=== PATIENT | female | born 1955 | race Caucasian/White ===

== ENCOUNTER 2018-04-16 13:21 | Outpatient (CLI) | payer MEDICARE, MEDICAID | END 2018-04-16 13:22 | disposition home or self-care (01) | LOC: BICMAMMO 13:21 | PROVIDERS: ATTEND Family Medicine | DX: Z12.31 Encounter for screening mammogram for malignant neoplasm of breast (principal) | CPT/HCPCS: 77066; G0279 ==

== ENCOUNTER 2018-10-28 00:15 | Outpatient (CLI) | payer MEDICARE, MEDICAID ==
[2018-10-28 13:50] LABS: Anion Gap 12 mmol/L (10-20); BUN (Urea Nitrogen) 11 mg/dL (9.8-20.1); Calc. Creatinine Clearance 0 mL/min (70-130); Calcium 9.4 mg/dL (7.8-10.44); Carbon Dioxide 27 mmol/L (23-31); Chloride 106 mmol/L (98-107); Estimated GFR-MDRD 75; Glucose 136 mg/dL (80-115); Potassium 4.2 mmol/L (3.5-5.1); Sodium 141 mmol/L (136-145)
--- NOTE | 2018-10-30 16:36 | EKG ---
Test Reason : Blood Pressure : / mmHG Vent. Rate : 099 BPM Atrial Rate : 099 BPM P-R Int : 150 ms QRS Dur : 066 ms QT Int : 354 ms P-R-T Axes : 078 064 062 degrees QTc Int : 454 ms Normal sinus rhythm Normal ECG When compared with ECG of 04-JAN-2010 11:24, T wave amplitude has decreased in Anterior leads Confirmed by DR. Pauline PENNINGTON ([id number]) on 10/30/2018 4:36:22 PM Referred By: ANGELES Confirmed By:DR. Pauline PENNINGTON
== END 2018-10-28 00:16 | disposition home or self-care (01) ==
LOC: LABBT 00:15
PROVIDERS: ATTEND Orthopaedic Surgery Hand Surgery
DX: Z01.818 Encounter for other preprocedural examination (principal); M67.432 Ganglion, left wrist
CPT/HCPCS: 80048; 93005; 93010

== ENCOUNTER 2018-11-06 07:29 | Day surgery (SDC) | payer MEDICARE, MEDICAID ==
[2018-10-28 12:37] VITALS: BMI 28.1
[2018-11-06] MEDS ORDERED: Clindamycin/D5W 600 mg/50 ml Premix Bag ONE (10:25)
[2018-11-06] MEDS ORDERED: Lidocaine 1% PF 5 ML VIAL ONE (10:30)
[2018-11-06] MEDS ORDERED: PROPOFOL 200 MG/20 ML VIAL ONE (10:30)
[2018-11-06] MEDS ORDERED: Dexamethasone 20 MG/5 ML VIAL ONE (10:30)
[2018-11-06] MEDS ORDERED: Ondansetron PF 4 MG/2 ML Vial ONE (10:30)
[2018-11-06] MEDS ORDERED: Lidocaine 2% Jelly 5 ML TUBE ONE (11:33)
[2018-11-06] MEDS ORDERED: Fentanyl 100 MCG/2 ML VIAL ONE (11:34)
[2018-11-06] MEDS ORDERED: Bacitracin Zinc Ointment 30 gm TUBE ONE (11:41)
[2018-11-06] MEDS ORDERED: Bupivacaine PF 0.5% 30 ML VIAL ONE (11:41)
[2018-11-06] MEDS ORDERED: Betamet Acet/Betamet Na Ph 30 MG/5 ML VIAL ONE (11:41)
[2018-11-06] MEDS ORDERED: Ketorolac Tromethamine 30 MG/ML VIAL ONE (13:05)
[2018-11-06] MEDS ORDERED: Morphine 4 MG/ML VIAL ONE (13:29)
--- NOTE | 2018-11-07 13:01 | OP ---
DATE OF PROCEDURE: 11/06/2018 PREOPERATIVE DIAGNOSES: 1. Ganglion, 2.5 cm left ulnar wrist. 2. Synovitis. POSTOPERATIVE DIAGNOSES: 1. Ganglion, 2.5 cm left ulnar wrist. 2. Synovitis. FINDINGS: Moderate synovitis in the scaphoradial joint and ganglion was 2.5 cm with 5 cm stalk emanating from this joint. PROCEDURES PERFORMED: 1. Arthrotomy with synovectomy wrist, left. 2. Volar wrist ganglion cyst excision. TOURNIQUET TIME: 17 minutes. ESTIMATED BLOOD LOSS: 10 mL. INDICATIONS FOR PROCEDURE: The patient had failed conservative treatment and had a swelling on the wrist with MRI showed it to be a ganglion, did not recall previous incision here despite the fact that we saw incision during surgery. DESCRIPTION OF PROCEDURE: After successful general endotracheal anesthesia, limb was prepped and draped. We outlined a 2.5 cm incision over appeared to be about 2 cm mass, which was ulnar to the flexor carpi radialis tendon over the shaft of the median nerve. We then quickly exsanguinated the limb, carried incision through skin, subcutaneous tissue, identified the radial nerve and the mass was slightly radial to median nerve at this time without translocating them. Then, we noticed that the patient had a large stalk and began dissection by first protecting the median nerve and its most radial palmar cutaneous branch. We then used forward retraction to assistance to achieve for visualization of the mass at 90 degrees and saw that although we went under the FCR, did not involve the radial artery sidewall, so we dissected it freely. The mass was then lifted out leaving approximately 5 mm long by 0.5 mm hole in the scaphoradial joint and I inspected joint. There was synovium that was very thick and also intra-articular ganglion with stalk still and we removed this as well. We deflated tourniquet to obtain hemostasis. We closed the incision after placing 3 mL Celestone in the joint with excellent hemostasis using the running 4-0 Monocryl epidermal and epidermal 4-0 nylon interrupted mattress pattern. Bulky dressing applied along with a short-arm splint and the patient left the operating room without evidence of anesthetic or operative complication. Job ID: [id number]
== END 2018-11-06 14:52 | disposition home or self-care (01) ==
LOC: SDC 07:29
PROVIDERS: ATTEND Orthopaedic Surgery Hand Surgery
PROC: 0LB60ZZ Excision of Left Lower Arm and Wrist Tendon, Open Approach (ICD-10-PCS; principal; 2018-11-06)
DX: M67.432 Ganglion, left wrist (principal); M65.88 Other synovitis and tenosynovitis, other site; Z79.1 Long term (current) use of non-steroidal anti-inflammatories (NSAID); Z79.82 Long term (current) use of aspirin; Z79.899 Other long term (current) drug therapy; Z88.0 Allergy status to penicillin
CPT/HCPCS: 88304; J0702; J1885; J2270; J3010; J3490; S0020

== ENCOUNTER 2019-02-05 07:26 | Day surgery (SDC) | payer MEDICARE, MEDICAID ==
[2019-02-04 10:53] VITALS: BMI 26.9
--- NOTE | 2019-02-05 10:38 | OP ---
DATE OF PROCEDURE: 02/05/2019 PROCEDURE PERFORMED: Screening colonoscopy. PREOPERATIVE DIAGNOSIS: Colon cancer screening. DESCRIPTION OF PROCEDURE: Informed consent was obtained from the patient. She was sedated with total intravenous anesthesia. The rectal exam was performed and revealed external hemorrhoids/skin tags. These were left alone. The colonoscope was advanced easily to the cecum, where the ileocecal valve and appendiceal orifice were clearly identified. The preparation quality was excellent. There was moderate diverticulosis in the sigmoid and descending colon. Retroflex views in the rectum revealed moderate internal hemorrhoids. The colonic mucosa was otherwise normal. IMPRESSION: 1. Moderate diverticulosis to the left colon. 2. Moderate internal and external hemorrhoids. 3. Otherwise normal screening colonoscopy. RECOMMENDATIONS: Repeat colonoscopy in 10 years for screening. Job ID: [id number]
== END 2019-02-05 10:23 | disposition home or self-care (01) ==
LOC: SDC 07:26
PROVIDERS: ATTEND Internal Medicine Gastroenterology
PROC: 0DJD8ZZ Inspection of Lower Intestinal Tract, Via Natural or Artificial Opening Endoscopic (ICD-10-PCS; principal; 2019-02-05)
DX: Z12.11 Encounter for screening for malignant neoplasm of colon (principal); K57.30 Diverticulosis of large intestine without perforation or abscess without bleeding; K64.4 Residual hemorrhoidal skin tags; K64.8 Other hemorrhoids; I10 Essential (primary) hypertension; E78.00 Pure hypercholesterolemia, unspecified; F17.200 Nicotine dependence, unspecified, uncomplicated; J44.9 Chronic obstructive pulmonary disease, unspecified; M19.90 Unspecified osteoarthritis, unspecified site; Z79.51 Long term (current) use of inhaled steroids; Z79.82 Long term (current) use of aspirin; Z79.899 Other long term (current) drug therapy; Z88.0 Allergy status to penicillin

== ENCOUNTER 2019-02-09 11:26 | Outpatient (CLI) | payer MEDICARE, MEDICAID ==
--- NOTE | 2019-02-09 11:39 | RAD ---
RADIOGRAPH CHEST 2 VIEWS: DATE: 02/09/2019 HISTORY: Dyspnea FINDINGS: There is no airspace density, pulmonary edema, pleural effusion, pneumothorax, or cardiomegaly. IMPRESSION: No acute cardiopulmonary findings.
== END 2019-02-09 11:27 | disposition home or self-care (01) ==
LOC: RAD 11:26
PROVIDERS: ATTEND Internal Medicine Pulmonary Disease
DX: R06.00 Dyspnea, unspecified (principal)
CPT/HCPCS: 71046

== ENCOUNTER 2019-08-17 11:03 | Outpatient (CLI) | payer MEDICARE ==
--- NOTE | 2019-08-17 11:13 | RAD ---
EXAM: Two views chest PROVIDED CLINICAL HISTORY: Dyspnea COMPARISON: 02/24/2019 FINDINGS: Cardiac and mediastinal silhouette appears within normal limits. Lungs appear free of significant opa city. No pleural fluid or pneumothorax apparent. IMPRESSION: No evidence for an acute cardiopulmonary process.
== END 2019-08-17 11:04 | disposition home or self-care (01) ==
LOC: RAD 11:03
PROVIDERS: ATTEND Internal Medicine Pulmonary Disease
DX: R06.00 Dyspnea, unspecified (principal)
CPT/HCPCS: 71046

== ENCOUNTER 2019-12-01 11:06 | Observation (INO) | payer MEDICARE ==
[~2019-12-01 11:06] MED LIST: Dexamethasone 20 MG/5 ML VIAL ONE; Ketorolac Tromethamine 30 MG/ML VIAL ONE; Lidocaine 1% PF 5 ML VIAL ONE; Ondansetron PF 4 MG/2 ML Vial ONE; PROPOFOL 200 MG/20 ML VIAL ONE; Succinylcholine Chloride 20 MG/ML 10 ml SYRINGE FS ONE
[2019-12-01] MEDS ORDERED: Clindamycin/D5W 900 mg/50 ml Premix Bag ONE (11:51)
[2019-12-01] MEDS ORDERED: Levofloxacin 500 mg/D5W 100 ml Premix Bag ONE (11:51)
[2019-12-01] MEDS ORDERED: Morphine 2 MG/ML SYRINGE ONE (12:25)
[2019-12-01] MEDS ORDERED: Midazolam HCl 2 mg/2 ml Vial ONE (13:08)
[2019-12-01] MEDS ORDERED: traMADol HCl 50 MG TAB PO PRN (13:18)
[2019-12-01] MEDS ORDERED: Ondansetron PF 4 MG/2 ML Vial IV PRN (13:18)
[2019-12-01] MEDS ORDERED: Fentanyl 100 MCG/2 ML VIAL SLOW IVP PRN (13:18)
[2019-12-01] MEDS ORDERED: Acetaminophen 325 MG TAB PO PRN (13:18)
[2019-12-01] MEDS ORDERED: Fentanyl 100 MCG/2 ML VIAL ONE ×2 (13:21→14:02)
[2019-12-01] MEDS ORDERED: Communication Order-Pharmacy FS SCH (13:30)
[2019-12-01] MEDS ORDERED: Ergocalciferol 1.25 MG(50,000 UNITS) CAP PO SCH (13:30)
[2019-12-01] MEDS ORDERED: predniSONE 20 MG TAB PO SCH (13:45)
[2019-12-01] MEDS ORDERED: HYDROmorphone 2 MG/ML VIAL SLOW IVP PRN (14:41)
[2019-12-01] MEDS ORDERED: Ondansetron HCl/PF 4 MG/2 ML Vial IVP PRN (14:41)
[2019-12-01] MEDS ORDERED: Promethazine HCl 25 MG/ML VIAL IM PRN (14:41)
[2019-12-01] MEDS ORDERED: Morphine Sulfate 2 MG/ML SYRINGE SLOW IVP PRN (14:41)
[2019-12-01] MEDS ORDERED: Promethazine HCl 25 MG/ML VIAL SLOW IVP PRN (14:41)
[2019-12-01] MEDS ORDERED: PACU-Morphine 4MG/ML VIAL SLOW IVP PRN (14:41)
--- NOTE | 2019-12-01 15:21 | OP ---
DATE OF PROCEDURE: 12/01/2019 OPERATION: Open reduction and internal fixation of right bimalleolar ankle fracture. PREOPERATIVE DIAGNOSIS: Displaced right fibular fracture and posterior malleolus fracture. POSTOPERATIVE DIAGNOSIS: Displaced right fibular fracture and posterior malleolus fracture. COMPLICATIONS: None. ESTIMATED BLOOD LOSS: Minimal. YEAST PUSHER: Jase Kitchen PA-C. IMPLANTS: Synthes posterior malleolar plate and one-third tubular plate with multiple screws. COMPLICATIONS: None. INDICATIONS: Ms. Lewis is a 64-year-old female, who has fallen and fractured her right ankle. She has an unstable right ankle fracture as well as an ankle sprain on the left. She has been indicated for open reduction and internal fixation of the right ankle with posterior malleolus plating and lateral malleolus plating. Risks have been reviewed, which do include infection, pain, wound complication, nerve or vascular injury, malunion, nonunion, DVT, PE, and others. DESCRIPTION OF PROCEDURE: Ms. Lewis was identified in the preoperative holding area. Her correct extremity was marked. She was carried to the operating room. She was positioned supine. General anesthesia was induced. A multidisciplinary time-out was performed. The right lower extremity was prepped and draped in sterile fashion. We began the procedure with posterolateral incision over the distal fibula. We dissected down through the subcutaneous tissues to the fascia, which was opened. We then worked deeply down to the lateral malleolus. We brought our dissection down to the bony level. We extended this somewhat proximally as well. We exposed the underlying fibular fracture from the posterior aspect. At this point, we reduced the fibular fracture with a reduction clamp. We then applied a 7-hole one-third tubular plate along the posterior cortex of the fibula. Multiple screws were placed affixing the plate to the bone. Next, at this point, we worked more deeply down the posterior ankle. We worked our way over to the posterior malleolus. This fracture was identified. We pulled traction on the foot and reduced the posterior malleolus fracture with an elevator. This was held with a K-wire. Next, we applied a Synthes posterior malleolar plate. A screw was placed proximally, reducing the plate to the bone, buttressing the fracture. We then placed two screws distally and two more screws proximally. At this point, we took final x-ray images confirming hardware placement, there was no complication. We thoroughly irrigated with copious lavage. We then closed in layers. A sterile dressing and a splint were placed. The patient was taken to the recovery room in good condition at this point. Job ID: [id number]
[2019-12-01] MEDS ORDERED: Ventolin HFA Inhaler 60 PUFF INHALER INH PRN (17:00)
[2019-12-01] MEDS: Clindamycin/D5W 900 MG in Premix Bag 1 BAG IVPB SCH ×2 (17:04→20:45)
--- NOTE | 2019-12-01 17:09 | RAD ---
THREE VIEWS OF THE RIGHT ANKLE: 12/01/19 COMPARISON: 11/30/19 HISTORY: ORIF right ankle. FINDINGS/IMPRESSION: Multiple limited intraoperative fluoroscopic views of the right ankle were submitted for interpretat ion. Patient is status post plate and screw fixation of the distal tibia and fibula. Moderate lateral soft tissue swelling is seen. There is normal alignment of the ankle mortise. POS: EAA
[2019-12-01 17:32] VITALS: BMI 26.3
[2019-12-01] MEDS: predniSONE 20 MG TAB PO SCH (17:37)
[2019-12-01] MEDS: Mometasone 200 MCG/Formoterol 5 MCG 120 PUFF INHALER INH SCH (18:17)
[2019-12-01] MEDS: HYDROcodone/Acetaminophen 5/325 mg Tablet PO PRN (20:15)
[2019-12-01] MEDS: Varenicline Tartrate 0.5 MG TAB PO SCH (20:19)
[2019-12-01] MEDS ORDERED: Aspirin 81 mg Enteric Coated Tablet PO SCH (21:00)
[2019-12-01] MEDS ORDERED: Atorvastatin Calcium 40 MG TAB PO SCH (21:00)
[2019-12-01] MEDS ORDERED: Amitriptyline HCl 25 MG TAB PO SCH (21:00)
[2019-12-01] MEDS ORDERED: Fat Emulsion 250 ML, Multivitamins, Adult 10 ML, TRACE ELEMENT CONCENTRATE 1 ML in D15W... IV SCH (22:00)
[2019-12-02] MEDS: HYDROcodone/Acetaminophen 5/325 mg Tablet PO PRN ×2 (05:30→10:30)
--- NOTE | 2019-12-02 06:58 | EKG ---
Test Reason : PREOP Blood Pressure : / mmHG Vent. Rate : 097 BPM Atrial Rate : 097 BPM P-R Int : 152 ms QRS Dur : 072 ms QT Int : 350 ms P-R-T Axes : 077 051 078 degrees QTc Int : 444 ms Normal sinus rhythm Normal ECG When compared with ECG of 28-OCT-2018 13:14, Nonspecific T wave abnormality now evident in Lateral leads Confirmed by DR. Maye VILLALTA ([id number]) on 12/02/2019 6:58:14 AM Referred By: ARNOLD Confirmed By:DR. Maye VILLALTA
[2019-12-02] MEDS ORDERED: Tiotropium Bromide 4 GM INHALER IH SCH (07:00)
[2019-12-02] MEDS: Mometasone 200 MCG/Formoterol 5 MCG 120 PUFF INHALER INH SCH (07:10)
[2019-12-02] MEDS ORDERED: Fluticasone Propionate Nasal Spray 16 gm Bottle NASAL SCH (09:00)
[2019-12-02] MEDS ORDERED: Aspirin 81 mg Enteric Coated Tablet PO SCH (09:00)
[2019-12-02] MEDS ORDERED: Amlodipine 5 MG TAB PO SCH (09:00)
[2019-12-02] MEDS: Varenicline Tartrate 0.5 MG TAB PO SCH (09:28)
[2019-12-02] MEDS: predniSONE 20 MG TAB PO SCH (09:29)
[2019-12-02 12:05] VITALS: BP 113/68; TEMP 97.9
--- NOTE | 2019-12-03 12:53 | DIS ---
DATE OF ADMISSION: 12/01/2019 DATE OF DISCHARGE: 12/02/2019 This is Damian Vazquez PA-C dictating a report for Kenny Bueno MD. ADMISSION DIAGNOSIS: Right ankle fracture. POSTOPERATIVE DIAGNOSIS: Right ankle fracture. PROCEDURE: The patient underwent an open reduction and internal fixation of right ankle. HOSPITAL COURSE: Her hospital stay was unremarkable. Admitted to [place] [id number] for overnight antibiotics, had no hospital complications. DISCHARGE CONDITION: Good/stable. DISPOSITION: Home with family. FOLLOWUP: Follow up would be in 10 to 14 days or sooner if there are problems or concerns. Job ID: [id number]
[2019-12-04] MEDS ORDERED: predniSONE 20 MG TAB PO SCH (08:00)
== END 2019-12-02 14:20 | disposition home or self-care (01) ==
LOC: SDC 11:06 → SURG A 13:22
PROVIDERS: ADMIT Orthopaedic Surgery; ATTEND Orthopaedic Surgery
PROC: 0QSJ04Z Reposition Right Fibula with Internal Fixation Device, Open Approach (ICD-10-PCS; principal; 2019-12-01)
PROC: 0QSG04Z Reposition Right Tibia with Internal Fixation Device, Open Approach (ICD-10-PCS; 2019-12-01)
DX: S82.841A Displaced bimalleolar fracture of right lower leg, initial encounter for closed fracture (principal); J45.909 Unspecified asthma, uncomplicated; E78.00 Pure hypercholesterolemia, unspecified; I10 Essential (primary) hypertension; M81.0 Age-related osteoporosis without current pathological fracture; Z87.891 Personal history of nicotine dependence; Z79.899 Other long term (current) drug therapy; Z88.0 Allergy status to penicillin; W10.8XXA Fall (on) (from) other stairs and steps, initial encounter
CPT/HCPCS: 27814; 73610; 76000; 93005; 94640 ×4; 97116; 97139 ×4; C1713 ×2; G0378 ×2; J1100; J1885; J1956; J2001; J2250; J2270; J2405; J2704; J3010; J3490; J7512; J7620 ×2; 93010

== ENCOUNTER 2019-12-03 15:39 | Emergency (ER) | payer MEDICARE ==
[2019-12-03 16:12] LABS: #Basophils 0.1 thou/uL (0.0-0.2); #Lymphocytes 2.7 thou/uL (1.20-3.40); #Monocytes 1.2 thou/uL (0.11-0.59); %Basophils 0.4 % (0.0-1.0); %Eosinophils 0.3 % (0.0-10.0); %Lymphocytes 20.5 % (21.0-51.0); %Monocytes 8.9 % (0.0-10.0); Hemoglobin 11.2 g/dL (12.0-16.0); Mean Corpuscular HGB CONC 32.9 g/dL (32.0-36.0); Mean Corpuscular Hemoglobin 33.4 pg (27.0-31.0); Mean Platelet Volume 6.7 fL (7.4-10.4); Platelet Count 283 thou/uL (130-400); RBC Distribution Width 12.3 % (11.5-14.5); Red Blood Cell (RBC) Count 3.35 mill/uL (4.20-5.40); White Blood Cell (WBC) Count 12.9 thou/uL (4.8-10.8)
== END 2019-12-03 17:00 | disposition home or self-care (01) ==
LOC: ERS 15:39
DX: M96.830 Postprocedural hemorrhage of a musculoskeletal structure following a musculoskeletal system procedure (principal); M19.90 Unspecified osteoarthritis, unspecified site; I10 Essential (primary) hypertension; Z87.891 Personal history of nicotine dependence; W10.9XXA Fall (on) (from) unspecified stairs and steps, initial encounter
CPT/HCPCS: 36415; 85025; 99283

== ENCOUNTER 2020-08-21 16:45 | Inpatient (IN) | payer MEDICARE ==
[2020-08-21 18:16] VITALS: BMI 26.2
[2020-08-21] MEDS ORDERED: Senokot S 8.6-50 MG TAB PO PRN (23:05)
[2020-08-21] MEDS ORDERED: HYDROcodone/Acetaminophen 5/325 mg Tablet PO PRN ×2 (23:05→23:35)
[2020-08-21] MEDS ORDERED: hydrALAZINE 20 MG/ML VIAL SLOW IVP PRN (23:05)
[2020-08-21] MEDS ORDERED: Labetalol HCl 100 MG/20 ML VIAL SLOW IVP PRN (23:05)
[2020-08-21] MEDS ORDERED: Acetaminophen 325 MG TAB PO PRN (23:05)
[2020-08-21] MEDS ORDERED: Guaifenesin DM 100-10/5 ML UDCUP PO PRN (23:05)
[2020-08-21] MEDS ORDERED: Ondansetron PF 4 MG/2 ML Vial IVP PRN (23:05)
[2020-08-21] MEDS ORDERED: Promethazine HCl 12.5 MG in Sodium Chloride 0.9% 50 ML IVPB PRN (23:05)
[2020-08-21] MEDS ORDERED: cloNIDine 0.1 MG TAB PO PRN (23:05)
[2020-08-21] MEDS ORDERED: Electrolyte Replacement Protocol 1 EACH FS PRN (23:15)
--- NOTE | 2020-08-21 23:19 | PDOC.HHP ---
Hospitalist HPI - History of Present Illness Shortness of breath History of Present Illness: Patient is a 65 year old female with PMh HTN, COPD, HLD, vitamin D deficiency who presents as transfer from [place] ED for shortness of breath, covid. Patient requires 2L o2 at baseline. She reports worsening shortness of breath x 6 days, informed today she was covid positive. she reports nausea and vomiting over last 4 days as well, also she feels a chest tightness similar to previous COPD flares, pleuritic, previously relieved by inhalers. She has extreme fatigue and unabel to get out of bed. has had significantly reduced PO intake for last 4 days. she had a temperature of 104F a few days ago. she had a productive cough and wheezing as well. CTa chest performed, with suspicion of acute infiltrate on chronic lung disease, presumed covid vs bacterial pneumonia. She recieved azithromycin, decadron, aspirin, ceftriaxone, duoneb and was transferred here. EKG reviewed on floor by me and NSR. she has a history of heart disease, sees Dr Pearce. Hospitalist ROS - Review of Systems Constitutional: denies: fever, chills, sweats, weakness, malaise, other Eyes: denies: pain, vision change, conjunctivae inflammation, eyelid inflammation, redness, other ENT: denies: ear pain, ear discharge, nose pain, nose discharge, nose congestion, mouth pain, mouth swelling, throat pain, throat swelling, other Respiratory: reports: cough, shortness of breath, pleuritic pain, wheezing Cardiovascular: denies: chest pain, palpitations, orthopnea, paroxysmal noc. dyspnea, edema, light headedness, other Gastrointestinal: denies: nausea, vomiting, abdominal pain, diarrhea, constipation, melena, hematochezia, other Genitourinary: denies: dysuria, frequency, incontinence, hematuria, retention, other Musculoskeletal: denies: neck pain, shoulder pain, arm pain, back pain, hand pain, leg pain, foot pain, other Skin: denies: rash, lesions, fernando, bruising, other Neurological: denies: weakness, numbness, incoordination, change in speech, confusion, seizures, other All other systems reviewed; all pertinent +/- noted in HPI/Subj - Medication Medications: reviewed, see ED transfer documents for list Hospitalist History - Past Medical History Other Medical History: HTN, COPD, HLD, vitamin D deficiency - Past Surgical History Other Surgical History: r foot surgery hysterectomy bilateral wrist surgery - Family History Family History: reports: no pertinent history - Social History Smoking Status: Former smoker Hospitalist Results - Labs Lab results: Troponin I Less than 0.010 ng/mL (< 0.028) 08/21/20 19:59 Additional comment: [place] ED labs, imaging reports, ED notes reviewed - EKG Interpretation EKG: reviewed by me, NSR 73 bpm, IN 18, QTc 445 Hospitalist H&P A/P - Plan Plan: Patient is a 65 year old female with PMH HTN, COPD, HLD, vitamin D deficiency who presents as transfer from [place] ED for shortness of breath, covid. # COVID 19 pneumonia # COPD exacerbation # acute on chronic respiratory failure worsening shortness of breath x 6 days, informed today she was covid positive - admitted to floor - resume home inhalers - albuterol, spiriva, flonase, add dulera - steroids ordered - decadron - continue azithromycin/ceftriaxone - follow cultures ordered at outside facility - elevated D dimer, CRP, negative PE for PE at outside facility # HTN - resume home medications, PRN mediations ordered as well # HLD - resume home meds # history of vitamin d deficiency - order vitamin D/C # history of cardiac disease - EKG reviewed on floor by me and NSR. she has a history of heart disease, sees Dr Pearce. # DVT/GI ppx full code
[2020-08-21] MEDS ORDERED: Albuterol 200 PUFF (6.7GM INHALER) INH PRN (23:22)
[2020-08-21] MEDS ORDERED: Cyclobenzaprine 10 MG TAB PO PRN (23:35)
[2020-08-21] MEDS ORDERED: Furosemide 20 MG TAB PO PRN (23:35)
[2020-08-21] MEDS ORDERED: Non-Formulary Item 1 EACH (Albuterol Sulfate [Proair Hfa] 8.5 GM Hfa.Aer.Ad) INH PRN (23:35)
[2020-08-21] MEDS ORDERED: Fluticasone Propionate Nasal Spray 16 gm Bottle NASAL PRN (23:41)
[2020-08-22] MEDS: Tiotropium Bromide 4 GM INHALER IH SCH (06:28)
[2020-08-22] MEDS ORDERED: Mometasone 100 MCG/Formoterol 5 MCG 120 PUFF INHALER INH SCH (06:30)
[2020-08-22 06:34] LABS: #Lymphocytes 0.9 thou/uL (1.20-3.40); #Monocytes 0.4 thou/uL (0.11-0.59); #Neutrophils 2.4 thou/uL (1.40-6.50); %Eosinophils 0.8 % (0.0-10.0); %Lymphocytes 23.6 % (21.0-51.0); %Monocytes 11.8 % (0.0-10.0); %Neutrophils 63.8 % (42.0-75.0); Hemoglobin 12.2 g/dL (12.0-16.0); Mean Corpuscular HGB CONC 32.1 g/dL (32.0-36.0); Mean Corpuscular Hemoglobin 31.4 pg (27.0-31.0); Mean Corpuscular Volume 97.9 fL (78.0-98.0); Mean Platelet Volume 7.1 fL (7.4-10.4); Platelet Count 435 thou/uL (130-400); RBC Distribution Width 12.6 % (11.5-14.5); Red Blood Cell (RBC) Count 3.88 mill/uL (4.20-5.40); White Blood Cell (WBC) Count 3.7 thou/uL (4.8-10.8)
[2020-08-22] MEDS ORDERED: Magnesium 2 GM/50 ML 2 GM in Premix Bag 1 BAG IVPB SCH ×2 (06:45→10:15)
[2020-08-22 06:53] LABS: Anion Gap 15 mmol/L (10-20); BUN (Urea Nitrogen) 14 mg/dL (9.8-20.1); Calc. Creatinine Clearance 111 mL/min (70-130); Calcium 8.1 mg/dL (7.8-10.44); Carbon Dioxide 19 mmol/L (23-31); Chloride 108 mmol/L (98-107); Glucose 96 mg/dL (80-115); Magnesium 2.2 mg/dL (1.6-2.6); Potassium 4.7 mmol/L (3.5-5.1); Sodium 137 mmol/L (136-145)
--- NOTE | 2020-08-22 07:54 | PDOC.HOSPP ---
- Subjective Encounter Date: 08/22/20 Encounter Time: 11:30 Subjective: Patient feeling a little better today. Still with cough and shortness of breath. - Objective Vital Signs & Weight: Vital Signs (12 hours) Temp Pulse Resp BP Pulse Ox 08/22/20 05:34 98.0 F 65 20 152/73 H 93 L 08/21/20 21:40 97 08/21/20 21:00 98.2 F 72 20 135/72 99 08/21/20 20:00 97 Weight Weight 162 lb 3.2 oz Result Diagrams: 08/22/20 05:49 08/22/20 05:49 Hospitalist ROS - Review of Systems Constitutional: denies: fever, chills Respiratory: reports: cough, shortness of breath, SOB with excertion, wheezing Cardiovascular: denies: chest pain, palpitations Gastrointestinal: denies: nausea, vomiting, abdominal pain - Medication Medications: Active Medications Generic Name Dose Route Start Last Admin Trade Name Freq PRN Reason Stop Dose Admin Influenza Virus Vaccine Quadrival 240 mcg 08/22/20 09:00 08/21/20 23:34 Flu Vacc [id number](65yr Up)/Pf 240 Mcg/0.7 Ml Syringe IM 08/22/20 09:01 Not Given .ONCE ONE Mometasone Furoate/Formoterol Fumar 1 puff 08/22/20 06:30 08/22/20 05:08 Mometasone 100 Mcg/Formoterol 5 Mcg 120 Puff Inhaler INH 1 puff BID-RT ROBERT Administration Pneumococcal Polyvalent Vaccine 0.5 ml 08/22/20 09:00 08/21/20 23:34 Pneumococcal 23 "Pneumovax" 0.5 Ml Vial IM 08/22/20 09:01 Not Given .ONCE ONE Tiotropium [place] 0 gm 08/22/20 07:00 08/22/20 06:28 Tiotropium [place] 4 Gm Inhaler IH 1 puff DAILY-RT ROBERT Administration - Exam General Appearance: NAD, awake alert ENT: moist mucosa Heart: RRR, no murmur, no gallops, no rubs Respiratory: CTAB, no wheezes, no rales, no ronchi, no tachypnea Gastrointestinal: soft, non-tender, non-distended, normal bowel sounds Psychiatric: normal affect, normal behavior, A&O x 3 Hosp A/P - Plan Patient is a 65 year old female with PMH HTN, COPD, HLD, vitamin D deficiency who presents as transfer from [place] ED for shortness of breath, Covid-19 infection. # COVID 19 pneumonia # COPD exacerbation # acute on chronic respiratory failure with hypoxia - admitted to floor - resumed home inhalers - albuterol, spiriva, flonase, add dulera - steroids ordered - decadron - started Remdesivir and convalescent plasma - reviewed radiologist read of CT chest, likely old infectious sequela, no leukocytosis, can narrow abx for COPD - follow cultures ordered at outside facility - elevated D dimer, CRP, negative PE for PE at outside facility # HTN - resume home medications, PRN mediations ordered as well # HLD - resume home meds # history of vitamin d deficiency - order vitamin D/C # history of cardiac disease - EKG reviewed on floor by me and NSR. she has a history of heart disease, sees Dr Pearce. # DVT/GI ppx full code
[2020-08-22] MEDS ORDERED: Cyclobenzaprine 10 MG TAB PO PRN (07:56)
[2020-08-22] MEDS ORDERED: Meclizine HCl 25 MG TAB PO PRN (07:56)
[2020-08-22] MEDS ORDERED: Ergocalciferol 1.25 MG(50,000 UNITS) CAP PO SCH (08:00)
[2020-08-22] MEDS: Amlodipine 5 MG TAB PO SCH (08:30)
[2020-08-22] MEDS: Cholecalciferol (Vitamin D3) 400 UNITS TAB PO SCH (08:30)
[2020-08-22] MEDS: Aspirin 81 mg Enteric Coated Tablet PO SCH ×2 (08:30→21:05)
[2020-08-22] MEDS: Famotidine 20 MG TAB PO SCH ×2 (08:31→21:05)
[2020-08-22] MEDS: PROVENTIL INHALER 6.7 G (200 INHALATIONS) INH SCH ×4 (08:31→18:00)
[2020-08-22] MEDS: Polyethylene Glycol 3350 17 GM Packet PO SCH (08:46)
[2020-08-22] MEDS ORDERED: FLU VACC QS2020-21(65YR UP)/PF 240 MCG/0.7 ML SYRINGE IM ONE (09:00)
[2020-08-22] MEDS ORDERED: Non-Formulary Item 1 EACH (Tiotropium Bromide [Spiriva] 18 MCG Cap.W.Dev) PO SCH (09:00)
[2020-08-22 09:15] LABS: ALT (SGPT) 18 U/L (8-55); AST (SGOT) 17 U/L (5-34); Albumin 3.1 g/dL (3.4-4.8); Alkaline Phosphatase 57 U/L (40-110); Bilirubin, Direct 0.1 mg/dL (0.1-0.3); Bilirubin, Total 0.3 mg/dL (0.2-1.2); Protein, Total 6.7 g/dL (6.0-8.3)
[2020-08-22] MEDS: Enoxaparin Sodium 40 MG/0.4 ML SYRINGE SC SCH ×2 (10:22→21:04)
[2020-08-22] MEDS: Ascorbic Acid 500 mg Chewable Tablet PO SCH (10:50)
[2020-08-22] MEDS ORDERED: REMDESIVIR (EUA) 200 MG in Sodium Chloride 0.9% 250 ML 210 ML IV SCH (13:15)
[2020-08-22] MEDS: Ipratropium Oral Inhaler INH SCH ×2 (14:18→17:59)
[2020-08-22] MEDS: Dexamethasone 4 mg/ml Vial SLOW IVP SCH (14:31)
[2020-08-22] MEDS ORDERED: Azithromycin 500 MG in Syringe 0 ML IVPB SCH (21:00)
[2020-08-22] MEDS ORDERED: cefTRIAXone\\ROCEPHIN 1 GM in Sodium Chloride 0.9% 100 ML IVPB SCH (21:00)
[2020-08-22] MEDS: Atorvastatin Calcium 40 MG TAB PO SCH (21:05)
[2020-08-22] MEDS: Amitriptyline HCl 25 MG TAB PO SCH (21:05)
[2020-08-22] MEDS: Mometasone 200 MCG/Formoterol 5 MCG 120 PUFF INHALER INH SCH (21:06)
[2020-08-22] MEDS: Azithromycin 500 MG in Sodium Chloride 0.9% 250 ML 250 ML IVPB SCH (21:07)
[2020-08-23] MEDS: Ipratropium Oral Inhaler INH SCH ×2 (00:17→06:17)
[2020-08-23] MEDS: Mometasone 200 MCG/Formoterol 5 MCG 120 PUFF INHALER INH SCH ×2 (05:31→19:02)
[2020-08-23] MEDS: PROVENTIL INHALER 6.7 G (200 INHALATIONS) INH SCH ×4 (06:17→19:03)
[2020-08-23] MEDS: Tiotropium Bromide 4 GM INHALER IH SCH (06:17)
[2020-08-23 06:53] LABS: #Lymphocytes 1.2 thou/uL (1.20-3.40); #Monocytes 0.5 thou/uL (0.11-0.59); #Neutrophils 3.4 thou/uL (1.40-6.50); %Basophils 0.1 % (0.0-1.0); %Eosinophils 0.2 % (0.0-10.0); %Lymphocytes 22.9 % (21.0-51.0); %Neutrophils 66.7 % (42.0-75.0); Hemoglobin 12.2 g/dL (12.0-16.0); Mean Corpuscular HGB CONC 33.4 g/dL (32.0-36.0); Mean Corpuscular Hemoglobin 32.8 pg (27.0-31.0); Mean Corpuscular Volume 98.1 fL (78.0-98.0); Mean Platelet Volume 6.4 fL (7.4-10.4); Platelet Count 531 thou/uL (130-400); RBC Distribution Width 12.4 % (11.5-14.5); Red Blood Cell (RBC) Count 3.72 mill/uL (4.20-5.40)
[2020-08-23 07:09] LABS: Anion Gap 11 mmol/L (10-20); BUN (Urea Nitrogen) 13 mg/dL (9.8-20.1); Calc. Creatinine Clearance 102 mL/min (70-130); Calcium 8.1 mg/dL (7.8-10.44); Carbon Dioxide 22 mmol/L (23-31); Chloride 111 mmol/L (98-107); Glucose 100 mg/dL (80-115); Magnesium 2.6 mg/dL (1.6-2.6); Potassium 4.1 mmol/L (3.5-5.1); Sodium 140 mmol/L (136-145)
[2020-08-23] MEDS: Ascorbic Acid 500 mg Chewable Tablet PO SCH (08:54)
[2020-08-23] MEDS: Amlodipine 5 MG TAB PO SCH (08:54)
[2020-08-23] MEDS: Cholecalciferol (Vitamin D3) 400 UNITS TAB PO SCH (08:55)
[2020-08-23] MEDS: Aspirin 81 mg Enteric Coated Tablet PO SCH ×2 (08:55→20:35)
[2020-08-23] MEDS: Famotidine 20 MG TAB PO SCH ×2 (08:55→20:35)
[2020-08-23] MEDS: Enoxaparin Sodium 40 MG/0.4 ML SYRINGE SC SCH ×2 (08:55→20:34)
[2020-08-23] MEDS: Polyethylene Glycol 3350 17 GM Packet PO SCH (09:09)
--- NOTE | 2020-08-23 12:45 | PDOC.HOSPP ---
- Subjective Encounter Date: 08/23/20 Encounter Time: 09:00 Subjective: Patient seen and examined. No new complaints. No overnight events - Objective Vital Signs & Weight: Vital Signs (12 hours) Temp Pulse Resp BP Pulse Ox 08/23/20 08:00 98.0 F 69 20 134/69 95 Weight Weight 162 lb 3.2 oz Result Diagrams: 08/23/20 06:26 08/23/20 06:26 Hospitalist ROS - Review of Systems ENT: denies: ear pain, ear discharge, nose pain, nose discharge, nose congestion, mouth pain, mouth swelling, throat pain, throat swelling, other Respiratory: denies: cough, dry, shortness of breath, hemoptysis, SOB with excertion, pleuritic pain, sputum, wheezing, other Cardiovascular: denies: chest pain, palpitations, orthopnea, paroxysmal noc. dyspnea, edema, light headedness, other Gastrointestinal: denies: nausea, vomiting, abdominal pain, diarrhea, constipation, melena, hematochezia, other Genitourinary: denies: dysuria, frequency, incontinence, hematuria, retention, other Musculoskeletal: denies: neck pain, shoulder pain, arm pain, back pain, hand pain, leg pain, foot pain, other Skin: denies: rash, lesions, fernando, bruising, other - Medication Medications: Active Medications Generic Name Dose Route Start Last Admin Trade Name Freq PRN Reason Stop Dose Admin Albuterol Sulfate 2 puff 08/22/20 11:00 08/23/20 11:33 Proventil Inhaler 6.7 G (200 Inhalations) INH 2 puff QID-RT ROBERT Administration Amitriptyline HCl 50 mg 08/22/20 21:00 08/22/20 21:05 Amitriptyline Hcl 25 Mg Tab PO 50 mg HS ROBERT Administration Amlodipine Besylate 5 mg 08/22/20 09:00 08/23/20 08:54 Amlodipine 5 Mg Tab PO 5 mg DAILY ROBERT Administration Ascorbic Acid 1,000 mg 08/22/20 09:00 08/23/20 08:54 Ascorbic Acid 500 Mg Chewable Tablet PO 1,000 mg DAILY ROBERT Administration Aspirin 81 mg 08/22/20 09:00 08/23/20 08:55 Aspirin 81 Mg Enteric Coated Tablet PO 81 mg BID ROBERT Administration Atorvastatin Calcium 40 mg 08/22/20 21:00 08/22/20 21:05 Atorvastatin Calcium 40 Mg Tab PO 40 mg HS ROBERT Administration Cholecalciferol 400 units 08/22/20 09:00 08/23/20 08:55 Cholecalciferol (Vitamin D3) 400 Units Tab PO 400 units DAILY ROBERT Administration Dexamethasone 6 mg 08/22/20 14:00 08/22/20 14:31 Dexamethasone 4 Mg/Ml Vial SLOW IVP 6 mg Q24HR ROBERT Administration Enoxaparin Sodium 40 mg 08/22/20 09:00 08/23/20 08:55 Enoxaparin Sodium 40 Mg/0.4 Ml Syringe SC 40 mg 0900,2100 ROBERT Administration Ergocalciferol 1.25 mg 08/22/20 08:00 08/22/20 10:22 Ergocalciferol 1.25 Mg(50,000 Units) Cap PO 1.25 mg Q7D ROBERT Administration Famotidine 20 mg 08/22/20 09:00 08/23/20 08:55 Famotidine 20 Mg Tab PO 20 mg BID ROBERT Administration Azithromycin 500 mg/ Sodium 250 mls @ 250 mls/hr 08/22/20 21:00 08/22/20 21:07 Chloride IVPB 250 mls HS ROBERT Administration Mometasone Furoate/Formoterol Fumar 1 puff 08/22/20 18:30 08/23/20 05:31 Mometasone 200 Mcg/Formoterol 5 Mcg 120 Puff Inhaler INH 1 puff BID-RT ROBERT Administration Polyethylene Glycol 17 gm 08/22/20 09:00 08/23/20 09:09 Polyethylene Glycol 3350 17 Gm Packet PO Not Given DAILY ROBERT Tiotropium [place] 0 gm 08/22/20 07:00 08/23/20 06:17 Tiotropium [place] 4 Gm Inhaler IH 2 puff DAILY-RT ROBERT Administration - Exam General Appearance: NAD, awake alert Eye: PERRL, anicteric sclera ENT: normocephalic atraumatic, no oropharyngeal lesions Neck: supple, symmetric, no JVD, no thyromegaly Heart: RRR, no murmur, no gallops, no rubs Respiratory: no wheezes, no rales, no ronchi Gastrointestinal: soft, non-tender, non-distended, normal bowel sounds Extremities: no cyanosis, no clubbing, no edema Skin: normal turgor, no lesions Neurological: no focal deficits Musculoskeletal: normal tone, normal strength Psychiatric: normal affect, normal behavior Hosp A/P (1) COPD exacerbation Code(s): J44.1 - CHRONIC OBSTRUCTIVE PULMONARY DISEASE W (ACUTE) EXACERBATION Status: Acute (2) Acute on chronic respiratory failure with hypoxia Code(s): J96.21 - ACUTE AND CHRONIC RESPIRATORY FAILURE WITH HYPOXIA Status: Acute (3) COVID-19 Code(s): U07.1 - COVID-19 Status: Acute (4) Pneumonia due to 2019 novel coronavirus Code(s): U07.1 - COVID-19; J12.82 - PNEUMONIA DUE TO CORONAVIRUS DISEASE 2019 Status: Acute (5) Hypertension Code(s): I10 - ESSENTIAL (PRIMARY) HYPERTENSION Status: Chronic (6) Dyslipidemia Code(s): E78.5 - HYPERLIPIDEMIA, UNSPECIFIED Status: Chronic - Plan old records reviewed/req, continue antibiotics, respiratory therapy, DVT proph w/lovenox Continue remdesivir therapy as per protocol again Continue dexamethasone Continue respiratory therapy Continue vitamin supplementation Patient has clinical improvement We will continue monitor while in hospital.
[2020-08-23] MEDS: Dexamethasone 4 mg/ml Vial SLOW IVP SCH (14:38)
[2020-08-23] MEDS: REMDESIVIR (EUA) 100 MG in Sodium Chloride 0.9% 250 ML 230 ML IV SCH (14:39)
[2020-08-23] MEDS: Azithromycin 500 MG in Sodium Chloride 0.9% 250 ML 250 ML IVPB SCH (20:34)
[2020-08-23] MEDS: Amitriptyline HCl 25 MG TAB PO SCH (20:35)
[2020-08-23] MEDS: Atorvastatin Calcium 40 MG TAB PO SCH (20:35)
[2020-08-23] MEDS ORDERED: Calcium Carbonate 500 MG ChewTAB PO PRN (23:37)
[2020-08-24] MEDS: Mometasone 200 MCG/Formoterol 5 MCG 120 PUFF INHALER INH SCH ×2 (06:07→18:22)
[2020-08-24] MEDS: PROVENTIL INHALER 6.7 G (200 INHALATIONS) INH SCH ×4 (06:08→18:22)
[2020-08-24] MEDS: Tiotropium Bromide 4 GM INHALER IH SCH (06:09)
[2020-08-24 06:35] LABS: #Lymphocytes 1.2 thou/uL (1.20-3.40); #Monocytes 0.5 thou/uL (0.11-0.59); #Neutrophils 3.9 thou/uL (1.40-6.50); %Basophils 0.2 % (0.0-1.0); %Eosinophils 0.3 % (0.0-10.0); %Lymphocytes 20.8 % (21.0-51.0); %Monocytes 9.6 % (0.0-10.0); %Neutrophils 69.2 % (42.0-75.0); Hemoglobin 12.1 g/dL (12.0-16.0); Mean Corpuscular HGB CONC 33.9 g/dL (32.0-36.0); Mean Corpuscular Hemoglobin 33.1 pg (27.0-31.0); Mean Corpuscular Volume 97.6 fL (78.0-98.0); Mean Platelet Volume 6.2 fL (7.4-10.4); Platelet Count 567 thou/uL (130-400); RBC Distribution Width 12.6 % (11.5-14.5); Red Blood Cell (RBC) Count 3.67 mill/uL (4.20-5.40); White Blood Cell (WBC) Count 5.6 thou/uL (4.8-10.8)
[2020-08-24 06:56] LABS: Anion Gap 11 mmol/L (10-20); BUN (Urea Nitrogen) 13 mg/dL (9.8-20.1); Calc. Creatinine Clearance 96 mL/min (70-130); Carbon Dioxide 26 mmol/L (23-31); Chloride 108 mmol/L (98-107); Potassium 4.3 mmol/L (3.5-5.1); Sodium 141 mmol/L (136-145)
[2020-08-24 06:57] LABS: Calcium 8.2 mg/dL (7.8-10.44); Glucose 98 mg/dL (80-115); Magnesium 2.5 mg/dL (1.6-2.6)
[2020-08-24] MEDS: Amlodipine 5 MG TAB PO SCH (08:07)
[2020-08-24] MEDS: Enoxaparin Sodium 40 MG/0.4 ML SYRINGE SC SCH ×2 (08:08→20:37)
[2020-08-24] MEDS: Aspirin 81 mg Enteric Coated Tablet PO SCH ×2 (08:08→20:37)
[2020-08-24] MEDS: Cholecalciferol (Vitamin D3) 400 UNITS TAB PO SCH (08:08)
[2020-08-24] MEDS: Famotidine 20 MG TAB PO SCH ×2 (08:08→20:37)
[2020-08-24] MEDS: Polyethylene Glycol 3350 17 GM Packet PO SCH (08:08)
[2020-08-24] MEDS: Ascorbic Acid 500 mg Chewable Tablet PO SCH (08:08)
--- NOTE | 2020-08-24 11:21 | PDOC.HOSPP ---
- Subjective Encounter Date: 08/24/20 Encounter Time: 09:00 Subjective: Patient seen and examined. No new complaints. No overnight events - Objective Vital Signs & Weight: Vital Signs (12 hours) Temp Pulse Resp BP BP Pulse Ox 08/24/20 08:07 74 135/78 08/24/20 07:43 97.9 F 74 16 135/78 97 Weight Weight 162 lb 3.2 oz Result Diagrams: 08/24/20 06:09 08/24/20 06:09 Hospitalist ROS - Review of Systems Respiratory: denies: cough, dry, shortness of breath, hemoptysis, SOB with excertion, pleuritic pain, sputum, wheezing, other Cardiovascular: denies: chest pain, palpitations, orthopnea, paroxysmal noc. dyspnea, edema, light headedness, other Gastrointestinal: denies: nausea, vomiting, abdominal pain, diarrhea, constipa tion, melena, hematochezia, other Genitourinary: denies: dysuria, frequency, incontinence, hematuria, retention, other Musculoskeletal: denies: neck pain, shoulder pain, arm pain, back pain, hand pain, leg pain, foot pain, other - Medication Medications: Active Medications Generic Name Dose Route Start Last Admin Trade Name Freq PRN Reason Stop Dose Admin Albuterol Sulfate 2 puff 08/22/20 11:00 08/24/20 06:08 Proventil Inhaler 6.7 G (200 Inhalations) INH 2 puff QID-RT ROBERT Administration Amitriptyline HCl 50 mg 08/22/20 21:00 08/23/20 20:35 Amitriptyline Hcl 25 Mg Tab PO 50 mg HS ROBERT Administration Amlodipine Besylate 5 mg 08/22/20 09:00 08/24/20 08:07 Amlodipine 5 Mg Tab PO 5 mg DAILY ROBERT Administration Ascorbic Acid 1,000 mg 08/22/20 09:00 08/24/20 08:08 Ascorbic Acid 500 Mg Chewable Tablet PO 1,000 mg DAILY ROBERT Administration Aspirin 81 mg 08/22/20 09:00 08/24/20 08:08 Aspirin 81 Mg Enteric Coated Tablet PO 81 mg BID ROBERT Administration Atorvastatin Calcium 40 mg 08/22/20 21:00 08/23/20 20:35 Atorvastatin Calcium 40 Mg Tab PO 40 mg HS ROBERT Administration Cholecalciferol 400 units 08/22/20 09:00 08/24/20 08:08 Cholecalciferol (Vitamin D3) 400 Units Tab PO 400 units DAILY ROBERT Administration Dexamethasone 6 mg 08/22/20 14:00 08/23/20 14:38 Dexamethasone 4 Mg/Ml Vial SLOW IVP 6 mg Q24HR ROBERT Administration Enoxaparin Sodium 40 mg 08/22/20 09:00 08/24/20 08:08 Enoxaparin Sodium 40 Mg/0.4 Ml Syringe SC 40 mg 0900,2100 ROBERT Administration Ergocalciferol 1.25 mg 08/22/20 08:00 08/22/20 10:22 Ergocalciferol 1.25 Mg(50,000 Units) Cap PO 1.25 mg Q7D ROBERT Administration Famotidine 20 mg 08/22/20 09:00 08/24/20 08:08 Famotidine 20 Mg Tab PO 20 mg BID ROBERT Administration Azithromycin 500 mg/ Sodium 250 mls @ 250 mls/hr 08/22/20 21:00 08/23/20 20:34 Chloride IVPB 250 mls HS ROBERT Administration Remdesivir 100 mg/ Sodium 250 mls @ 250 mls/hr 08/23/20 14:00 08/23/20 14:39 Chloride IV 08/26/20 14:59 250 mls 1400 ROBERT Administration Mometasone Furoate/Formoterol Fumar 1 puff 08/22/20 18:30 08/24/20 06:07 Mometasone 200 Mcg/Formoterol 5 Mcg 120 Puff Inhaler INH 1 puff BID-RT ROBERT Administration Polyethylene Glycol 17 gm 08/22/20 09:00 08/24/20 08:08 Polyethylene Glycol 3350 17 Gm Packet PO Not Given DAILY ROBERT Tiotropium [place] 0 gm 08/22/20 07:00 08/24/20 06:09 Tiotropium [place] 4 Gm Inhaler IH 2 puff DAILY-RT ROBERT Administration - Exam General Appearance: NAD, awake alert Eye: PERRL, anicteric sclera ENT: normocephalic atraumatic, no oropharyngeal lesions Neck: supple, symmetric, no JVD, no thyromegaly Heart: RRR, no murmur, no gallops Respiratory: no wheezes, no rales, no ronchi Gastrointestinal: soft, non-tender, non-distended, normal bowel sounds Extremities: no cyanosis, no clubbing, no edema Skin: normal turgor, no lesions Neurological: no focal deficits Musculoskeletal: normal tone, normal strength, no muscle wasting Psychiatric: normal affect, normal behavior Hosp A/P (1) COPD exacerbation Code(s): J44.1 - CHRONIC OBSTRUCTIVE PULMONARY DISEASE W (ACUTE) EXACERBATION Status: Acute (2) Acute on chronic respiratory failure with hypoxia Code(s): J96.21 - ACUTE AND CHRONIC RESPIRATORY FAILURE WITH HYPOXIA Status: Acute (3) COVID-19 Code(s): U07.1 - COVID-19 Status: Acute (4) Pneumonia due to 2019 novel coronavirus Code(s): U07.1 - COVID-19; J12.82 - PNEUMONIA DUE TO CORONAVIRUS DISEASE 2019 Status: Acute (5) Hypertension Code(s): I10 - ESSENTIAL (PRIMARY) HYPERTENSION Status: Chronic (6) Dyslipidemia Code(s): E78.5 - HYPERLIPIDEMIA, UNSPECIFIED Status: Chronic - Plan old records reviewed/req, continue antibiotics, respiratory therapy, DVT proph w/lovenox Continue remdesivir therapy as per protocol Continue dexamethasone Continue azithromycin Continue respiratory therapy Continue vitamin supplementation Patient has clinical improvement We will continue monitor while in hospital.
[2020-08-24] MEDS: REMDESIVIR (EUA) 100 MG in Sodium Chloride 0.9% 250 ML 230 ML IV SCH (14:17)
[2020-08-24] MEDS: Dexamethasone 4 mg/ml Vial SLOW IVP SCH (14:18)
[2020-08-24] MEDS: Amitriptyline HCl 25 MG TAB PO SCH (20:36)
[2020-08-24] MEDS: Atorvastatin Calcium 40 MG TAB PO SCH (20:37)
[2020-08-24] MEDS: Azithromycin 500 MG in Sodium Chloride 0.9% 250 ML 250 ML IVPB SCH (20:38)
[2020-08-25] MEDS: PROVENTIL INHALER 6.7 G (200 INHALATIONS) INH SCH ×4 (07:24→18:31)
[2020-08-25] MEDS: Mometasone 200 MCG/Formoterol 5 MCG 120 PUFF INHALER INH SCH ×2 (07:24→18:31)
[2020-08-25] MEDS: Famotidine 20 MG TAB PO SCH ×2 (08:24→20:09)
[2020-08-25] MEDS: Amlodipine 5 MG TAB PO SCH (08:24)
[2020-08-25] MEDS: Cholecalciferol (Vitamin D3) 400 UNITS TAB PO SCH (08:24)
[2020-08-25] MEDS: Ascorbic Acid 500 mg Chewable Tablet PO SCH (08:24)
[2020-08-25] MEDS: Polyethylene Glycol 3350 17 GM Packet PO SCH (08:25)
[2020-08-25] MEDS: Enoxaparin Sodium 40 MG/0.4 ML SYRINGE SC SCH ×2 (08:25→20:10)
[2020-08-25] MEDS: Aspirin 81 mg Enteric Coated Tablet PO SCH ×2 (08:25→20:09)
[2020-08-25] MEDS: Tiotropium Bromide 4 GM INHALER IH SCH (08:25)
[2020-08-25] MEDS: Zinc Sulfate 220 MG CAP PO SCH (08:25)
--- NOTE | 2020-08-25 11:26 | PDOC.HOSPP ---
- Subjective Encounter Date: 08/25/20 Encounter Time: 09:30 Subjective: Patient seen and examined bedside today, patient is doing much better today, - Objective Vital Signs & Weight: Vital Signs (12 hours) Temp Pulse Resp BP BP BP Pulse Ox 08/25/20 08:24 78 138/83 08/25/20 07:48 97.6 F 78 16 138/83 97 08/25/20 04:00 98.0 F 61 18 113/66 93 L 08/25/20 00:00 98.0 F 67 18 122/82 95 Weight Weight 162 lb 3.2 oz I&O: 08/24/20 08/25/20 08/26/20 06:59 06:59 06:59 Intake Total 300 Balance 300 Result Diagrams: 08/24/20 06:09 08/24/20 06:09 Hospitalist ROS - Review of Systems ENT: denies: ear pain, ear discharge, nose pain, nose discharge, nose congestion, mouth pain, mouth swelling, throat pain, throat swelling, other Respiratory: denies: cough, dry, shortness of breath, hemoptysis, SOB with excertion, pleuritic pain, sputum, wheezing, other Cardiovascular: denies: chest pain, palpitations, orthopnea, paroxysmal noc. dyspnea, edema, light headedness, other Gastrointestinal: denies: nausea, vomiting, abdominal pain, diarrhea, constipation, melena, hematochezia, other Genitourinary: denies: dysuria, frequency, incontinence, hematuria, retention, other Musculoskeletal: denies: neck pain, shoulder pain, arm pain, back pain, hand pain, leg pain, foot pain, other - Medication Medications: Active Medications Generic Name Dose Route Start Last Admin Trade Name Freq PRN Reason Stop Dose Admin Albuterol Sulfate 2 puff 08/22/20 11:00 08/25/20 07:24 Proventil Inhaler 6.7 G (200 Inhalations) INH 2 puff QID-RT ROBERT Administration Amitriptyline HCl 50 mg 08/22/20 21:00 08/24/20 20:36 Amitriptyline Hcl 25 Mg Tab PO 50 mg HS ROBERT Administration Amlodipine Besylate 5 mg 08/22/20 09:00 08/25/20 08:24 Amlodipine 5 Mg Tab PO 5 mg DAILY ROBERT Administration Ascorbic Acid 1,000 mg 08/22/20 09:00 08/25/20 08:24 Ascorbic Acid 500 Mg Chewable Tablet PO 1,000 mg DAILY ROBERT Administration Aspirin 81 mg 08/22/20 09:00 08/25/20 08:25 Aspirin 81 Mg Enteric Coated Tablet PO 81 mg BID ROBERT Administration Atorvastatin Calcium 40 mg 08/22/20 21:00 08/24/20 20:37 Atorvastatin Calcium 40 Mg Tab PO 40 mg HS ROBERT Administration Cholecalciferol 400 units 08/22/20 09:00 08/25/20 08:24 Cholecalciferol (Vitamin D3) 400 Units Tab PO 400 units DAILY ROBERT Administration Enoxaparin Sodium 40 mg 08/22/20 09:00 08/25/20 08:25 Enoxaparin Sodium 40 Mg/0.4 Ml Syringe SC 40 mg 0900,2100 ROBERT Administration Ergocalciferol 1.25 mg 08/22/20 08:00 08/22/20 10:22 Ergocalciferol 1.25 Mg(50,000 Units) Cap PO 1.25 mg Q7D ROBERT Administration Famotidine 20 mg 08/22/20 09:00 08/25/20 08:24 Famotidine 20 Mg Tab PO 20 mg BID ROBERT Administration Remdesivir 100 mg/ Sodium 250 mls @ 250 mls/hr 08/23/20 14:00 08/24/20 14:17 Chloride IV 08/26/20 14:59 250 mls 1400 ROBERT Administration Mometasone Furoate/Formoterol Fumar 1 puff 08/22/20 18:30 08/25/20 07:24 Mometasone 200 Mcg/Formoterol 5 Mcg 120 Puff Inhaler INH Not Given BID-RT ROBERT Polyethylene Glycol 17 gm 08/22/20 09:00 08/25/20 08:25 Polyethylene Glycol 3350 17 Gm Packet PO Not Given DAILY ROBERT Tiotropium [place] 0 gm 08/22/20 07:00 08/25/20 08:25 Tiotropium [place] 4 Gm Inhaler IH 2 puff DAILY-RT ROBERT Administration Zinc Sulfate 220 mg 08/25/20 09:00 08/25/20 08:25 Zinc Sulfate 220 Mg Cap PO 220 mg DAILY ROBERT Administration - Exam General Appearance: NAD, awake alert Eye: PERRL, anicteric sclera ENT: normocephalic atraumatic, no oropharyngeal lesions Neck: supple, symmetric, no JVD, no thyromegaly Heart: RRR, no murmur, no gallops, no rubs Respiratory: no wheezes, no rales, no ronchi Gastrointestinal: soft, non-tender, non-distended, normal bowel sounds Extremities: no cyanosis, no clubbing, no edema Skin: normal turgor, no lesions Neurological: no focal deficits Musculoskeletal: normal tone, normal strength Psychiatric: normal affect, normal behavior Hosp A/P (1) COPD exacerbation Code(s): J44.1 - CHRONIC OBSTRUCTIVE PULMONARY DISEASE W (ACUTE) EXACERBATION Status: Acute (2) Acute on chronic respiratory failure with hypoxia Code(s): J96.21 - ACUTE AND CHRONIC RESPIRATORY FAILURE WITH HYPOXIA Status: Acute (3) COVID-19 Code(s): U07.1 - COVID-19 Status: Acute (4) Pneumonia due to 2019 novel coronavirus Code(s): U07.1 - COVID-19; J12.82 - PNEUMONIA DUE TO CORONAVIRUS DISEASE 2019 Status: Acute (5) Hypertension Code(s): I10 - ESSENTIAL (PRIMARY) HYPERTENSION Status: Chronic (6) Dyslipidemia Code(s): E78.5 - HYPERLIPIDEMIA, UNSPECIFIED Status: Chronic - Plan old records reviewed/req, DVT proph w/lovenox Continue remdesivir therapy as per protocol, tomorrow patient has last dose of remdesivir Continue dexamethasone Continue respiratory therapy Continue vitamin supplementation Patient has clinical improvement We will continue monitor while in hospital. Patient will be discharged tomorrow after remdesivir
[2020-08-25] MEDS: REMDESIVIR (EUA) 100 MG in Sodium Chloride 0.9% 250 ML 230 ML IV SCH (13:30)
[2020-08-25] MEDS: Amitriptyline HCl 25 MG TAB PO SCH (20:09)
[2020-08-25] MEDS: Atorvastatin Calcium 40 MG TAB PO SCH (20:10)
[2020-08-26] MEDS: PROVENTIL INHALER 6.7 G (200 INHALATIONS) INH SCH ×3 (06:10→14:54)
[2020-08-26] MEDS: Mometasone 200 MCG/Formoterol 5 MCG 120 PUFF INHALER INH SCH (06:11)
[2020-08-26] MEDS: Tiotropium Bromide 4 GM INHALER IH SCH (06:12)
[2020-08-26 07:37] VITALS: BP 122/77; TEMP 98
[2020-08-26] MEDS: Enoxaparin Sodium 40 MG/0.4 ML SYRINGE SC SCH (07:59)
[2020-08-26] MEDS: Cholecalciferol (Vitamin D3) 400 UNITS TAB PO SCH (08:00)
[2020-08-26] MEDS: Aspirin 81 mg Enteric Coated Tablet PO SCH (08:00)
[2020-08-26] MEDS: Famotidine 20 MG TAB PO SCH (08:00)
[2020-08-26] MEDS: Ascorbic Acid 500 mg Chewable Tablet PO SCH (08:00)
[2020-08-26] MEDS: Amlodipine 5 MG TAB PO SCH (08:00)
[2020-08-26] MEDS: Zinc Sulfate 220 MG CAP PO SCH (08:00)
[2020-08-26] MEDS ORDERED: Dexamethasone 4 MG TAB PO SCH (08:00)
[2020-08-26] MEDS: Polyethylene Glycol 3350 17 GM Packet PO SCH (08:01)
--- NOTE | 2020-08-26 10:40 | PDOC.DS.DS ---
Provider - Provider Date of Admission: 08/21/20 17:50 Date of Discharge: 08/26/20 Admitting Provider: Hannah Zaldivar MD Primary Care Physician: Tommie Atkins MD Course - Hospital Course Hospital Course: History on admission - 65 year old female with PMh HTN, COPD, HLD, vitamin D deficiency who presents as transfer from [place] [facility] for shortness of breath, covid. Patient requires 2L o2 at baseline. She reports worsening shortness of breath x 6 days, informed today she was covid positive. she reports nausea and vomiting over last 4 days as well, also she feels a chest tightness similar to previous COPD flares, pleuritic, previously relieved by inhalers. She has extreme fatigue and unabel to get out of bed. has had significantly reduced PO intake for last 4 days. she had a temperature of 104F a few days ago. she had a productive cough and wheezing as well. CTa chest performed, with suspicion of acute infiltrate on chronic lung disease, presumed covid vs bacterial pneumonia. She recieved azithromycin, decadron, aspirin, ceftriaxone, duoneb and was transferred here. EKG reviewed on floor by me and NSR. After admission patient was evaluated for remdesivir therapy, patient has completed remdesivir protocol while in hospital, patient was only requiring 2 L nasal cannula oxygen which is her normal requirement at home from her COPD, while in hospital she remained afebrile and hemodynamically stable. We have also provided dexamethasone while in hospital, patient is also given vitamin supplementation and empiric antibiotic therapy, upon discharge patient will need steroid for total 10 days. Patient seen and examined bedside today, patient is medically stable for discharge today after remdesivir therapy. Resuscitation Status: 08/21/20 23:05 Resuscitation Status Routine Resuscitation Status: FULL: Full Resuscitation - Labs Lab Results: 08/24/20 06:09 08/24/20 06:09 - Physical Exam Vitals: Vital Signs (12 hours) Temp Pulse Resp BP Pulse Ox 08/26/20 08:00 74 97 08/26/20 07:36 98.0 F 74 16 122/77 97 08/26/20 06:11 80 20 96 08/26/20 06:10 80 20 08/26/20 05:50 98.2 F 83 18 113/68 94 L 08/26/20 00:42 97.5 F L 82 18 137/80 99 Weight Weight 162 lb 3.2 oz Physical Exam: The patient was seen and examined on the day of discharge. General patient is currently alert and awake no acute distress Head normocephalic atraumatic Neck supple no JVD no meningeal signs of irritation Lungs clear to auscultation without any rhonchi or rales Cardiac S1-S2 regular no murmur no gallop no rub Abdomen soft, bowel sounds present, nontender nondistended no organomegaly no mass Extremity no edema good distal pulsation Neurologic nonfocal examination Psychiatric normal affect Problem - Problem (1) COPD exacerbation Code(s): J44.1 - CHRONIC OBSTRUCTIVE PULMONARY DISEASE W (ACUTE) EXACERBATION Status: Acute (2) Acute on chronic respiratory failure with hypoxia Code(s): J96.21 - ACUTE AND CHRONIC RESPIRATORY FAILURE WITH HYPOXIA Status: Acute (3) COVID-19 Code(s): U07.1 - COVID-19 Status: Acute (4) Pneumonia due to 2019 novel coronavirus Code(s): U07.1 - COVID-19; J12.82 - PNEUMONIA DUE TO CORONAVIRUS DISEASE 2019 Status: Acute (5) Hypertension Code(s): I10 - ESSENTIAL (PRIMARY) HYPERTENSION Status: Chronic (6) Dyslipidemia Code(s): E78.5 - HYPERLIPIDEMIA, UNSPECIFIED Status: Chronic Plan - Discharge Medications Prescriptions: Dexamethasone 6 mg PO DAILY #5 tablet Ascorbic Acid [Vitamin C] 1,000 mg PO DAILY #30 tab Zinc Sulfate 220 mg PO DAILY #14 tablet Home Medications: Medication Instructions Recorded Confirmed Type Amitriptyline HCl 50 mg PO HS 07/17/16 08/22/20 History Albuterol Sulfate [Proair HFA] 1 puff INH Q6HR PRN 10/28/18 08/22/20 History Amlodipine Besylate [amLODIPine 5 mg PO DAILY 10/28/18 08/22/20 History Besylate] Ergocalciferol (Vitamin D2) 50,000 unit PO Q7D 10/28/18 08/22/20 History [Vitamin D2] Fluticasone Propionate [Flonase 1 spray EA NARE PRN PRN 10/28/18 08/22/20 History Allergy Relief] Ipratropium/Albuterol Sulfate 3 ml NEB QID 10/28/18 08/22/20 History [DuoNeb] Atorvastatin Calcium 40 mg PO HS 02/04/19 08/22/20 History Cyclobenzaprine [Flexeril] 10 mg PO TID PRN 08/22/20 08/22/20 History Meclizine HCl [Antivert] 25 mg PO DAILY PRN 08/22/20 08/22/20 History Mometasone/Formoterol [Dulera 200 1 puff IH BID 08/22/20 08/22/20 History Mcg-5 Mcg Inhaler] Tiotropium [place] [Spiriva] 1 puff IH DAILY 08/22/20 08/22/20 History Ascorbic Acid [Vitamin C] 1,000 mg PO DAILY #30 tab 08/25/20 Rx Dexamethasone 6 mg PO DAILY #5 tablet 08/25/20 Rx Zinc Sulfate 220 mg PO DAILY #14 tablet 08/25/20 Rx Allergies: Penicillins Allergy (Verified 12/01/19 17:24) Anaphylaxis - Discharge Instructions Activity:: Activity as Tolerated Nourishment:: Heart Healthy Diet Therapies:: Not Applicable Equipment/Supplies:: Not Applicable IV Therapy:: Not Applicable - Follow up Plan Referrals: Tommie Atkins MD [Primary Care Provider] - Disposition: HOME Quality - Care Measures CORE MEASURES:: N/A
[2020-08-26] MEDS: REMDESIVIR (EUA) 100 MG in Sodium Chloride 0.9% 250 ML 230 ML IV SCH (13:36)
--- NOTE | 2020-09-03 19:25 | EKG ---
Test Reason : Blood Pressure : / mmHG Vent. Rate : 073 BPM Atrial Rate : 073 BPM P-R Int : 148 ms QRS Dur : 068 ms QT Int : 404 ms P-R-T Axes : 060 052 069 degrees QTc Int : 445 ms Normal sinus rhythm Normal ECG No previous ECGs available Confirmed by BRONWYN ABREU MD ([id number]) on 09/03/2020 7:25:44 PM Referred By: Pedrito WHALEY Confirmed By:BRONWYN ABREU MD
== END 2020-08-26 16:36 | disposition home or self-care (01) | DRG 177 ==
LOC: T4-B 17:50
PROVIDERS: ADMIT Internal Medicine; ATTEND Internal Medicine
PROC: XW033E5 Introduction of Remdesivir Anti-infective into Peripheral Vein, Percutaneous Approach, New Technology Group 5 (ICD-10-PCS; principal; 2020-08-22)
DX: U07.1 COVID-19 (principal); J12.82 Pneumonia due to coronavirus disease 2019; J96.21 Acute and chronic respiratory failure with hypoxia; J44.0 Chronic obstructive pulmonary disease with (acute) lower respiratory infection; J44.1 Chronic obstructive pulmonary disease with (acute) exacerbation; I10 Essential (primary) hypertension; E78.5 Hyperlipidemia, unspecified; E55.9 Vitamin D deficiency, unspecified; Z90.710 Acquired absence of both cervix and uterus; Z88.0 Allergy status to penicillin; Z98.890 Other specified postprocedural states; Z87.891 Personal history of nicotine dependence; Z86.79 Personal history of other diseases of the circulatory system; Z79.52 Long term (current) use of systemic steroids; Z79.899 Other long term (current) drug therapy
CPT/HCPCS: 36415; 80048; 80076; 82728; 83735; 85025; 85379; 86140; 93005; 93010; 94664; J0456; J1100; J1650; J3475; J7050; J8540

== ENCOUNTER 2020-10-18 13:13 | Outpatient (CLI) | payer MEDICARE | END 2020-10-18 13:14 | disposition home or self-care (01) | LOC: BICRAD 13:13 | PROVIDERS: ATTEND Internal Medicine Pulmonary Disease | DX: R06.00 Dyspnea, unspecified (principal) | CPT/HCPCS: 71046 ==

== ENCOUNTER 2020-10-30 11:09 | Outpatient (CLI) | payer MEDICARE | END 2020-10-30 11:10 | disposition home or self-care (01) | LOC: TBSIIMAG 11:09 | PROVIDERS: ATTEND Orthopaedic Surgery | DX: S46.012A Strain of muscle(s) and tendon(s) of the rotator cuff of left shoulder, initial encounter (principal) ==

== ENCOUNTER 2020-12-21 13:45 | Outpatient (CLI) | payer MEDICAID, MEDICARE ==
[2020-12-21 16:09] LABS: Anion Gap 15 mmol/L (10-20); BUN (Urea Nitrogen) 15 mg/dL (9.8-20.1); Calc. Creatinine Clearance 0 mL/min (70-130); Calcium 9.4 mg/dL (7.8-10.44); Carbon Dioxide 27 mmol/L (23-31); Chloride 104 mmol/L (98-107); Glucose 113 mg/dL (80-115); Potassium 4.5 mmol/L (3.5-5.1); Sodium 141 mmol/L (136-145)
[2020-12-21 16:41] LABS: #Eosinphils 0.1 10x3/uL (0.0-0.5); #Monocytes 0.6 10x3/uL (0.0-1.1); #Neutrophils 4.9 10x3/uL (1.5-8.4); %Basophils 0.4 % (0.0-2.0); %Eosinophils 1.8 % (0.0-6.0); %Lymphocytes 26.6 % (18.0-47.0); %Monocytes 7.9 % (0.0-10.0); %Neutrophils 62.9 % (40.0-75.0); Hemoglobin 13.9 g/dL (12.0-15.5); Mean Corpuscular HGB CONC 31.7 g/dL (32.0-36.0); Mean Corpuscular Hemoglobin 31.4 pg (27.0-33.0); Mean Corpuscular Volume 99.3 fl (81.6-98.3); Mean Platelet Volume 9.2 fl (7.4-10.4); Platelet Count 438 10x3/uL (150-450); Red Blood Cell (RBC) Count 4.42 10x6/uL (3.90-5.03); White Blood Cell (WBC) Count 7.9 10x3/uL (3.5-10.5)
[2020-12-22 01:47] LABS: SARS-CoV-2 PCR by NAA Not Detected (NotDetected)
== END 2020-12-21 13:46 | disposition home or self-care (01) ==
LOC: LABBT 13:45
PROVIDERS: ATTEND Orthopaedic Surgery
DX: Z01.818 Encounter for other preprocedural examination (principal); Z20.822 Contact with and (suspected) exposure to COVID-19; S46.912A Strain of unspecified muscle, fascia and tendon at shoulder and upper arm level, left arm, initial encounter
CPT/HCPCS: 80048; 85025; 87081; 93005; U0003; U0005; 87635; 93010

== ENCOUNTER 2020-12-21 14:15 | Inpatient (IN) | payer MEDICARE ==
[2020-12-26] MEDS ORDERED: Levofloxacin 500 mg/D5W 100 ml Premix Bag ONE (08:59)
[2020-12-26] MEDS ORDERED: Sodium Chloride 0.9% 100 ML ONE (09:00)
[2020-12-26] MEDS ORDERED: Tranexamic Acid 1,000 MG/10 ML VIAL ONE (09:00)
[2020-12-26] MEDS ORDERED: Vancomycin 1.5 GRAM/300 ML BAG 1.5 GM in Premix Bag 1 BAG IVPB SCH (09:15)
[2020-12-26] MEDS ORDERED: Fentanyl 100 MCG/2 ML VIAL ONE ×3 (09:44→14:42)
[2020-12-26] MEDS ORDERED: Midazolam HCl 2 mg/2 ml Vial ONE (09:44)
[2020-12-26] MEDS ORDERED: Sodium Chloride 0.9% 10 ML ONE (09:44)
[2020-12-26] MEDS ORDERED: Lidocaine 1% (PF) 30 ML VIAL ONE (09:45)
[2020-12-26] MEDS ORDERED: Lidocaine 2% Jelly 5 ML TUBE ONE (11:03)
[2020-12-26] MEDS ORDERED: Cyclobenzaprine 10 MG TAB PO PRN (11:03)
[2020-12-26] MEDS ORDERED: HYDROcodone/Acetaminophen 10/325 mg Tablet PO PRN ×2 (11:03)
[2020-12-26] MEDS ORDERED: Furosemide 20 MG TAB PO PRN (11:03)
[2020-12-26] MEDS ORDERED: Meclizine HCl 25 MG TAB PO PRN (11:03)
[2020-12-26] MEDS ORDERED: Fentanyl 100 MCG/2 ML VIAL IV PRN (11:04)
[2020-12-26] MEDS ORDERED: Zolpidem Tartrate 5 MG TAB PO PRN (11:15)
[2020-12-26] MEDS ORDERED: Ropivacaine 0.2% 550 ML 550 ML NERVE BLCK SCH (11:15)
[2020-12-26] MEDS ORDERED: Promethazine HCl 25 MG/ML VIAL IM PRN (11:15)
[2020-12-26] MEDS ORDERED: Ondansetron PF 4 MG/2 ML Vial IVP PRN (11:15)
[2020-12-26] MEDS ORDERED: traMADol HCl 50 MG TAB PO PRN ×2 (11:15)
[2020-12-26] MEDS ORDERED: Albuterol Sulfate 2.5 mg/3 ml Neb NEB PRN (11:31)
[2020-12-26] MEDS ORDERED: Rocuronium Bromide 10 MG/ML (10ML VIAL) ONE (11:32)
[2020-12-26] MEDS ORDERED: Ondansetron PF 4 MG/2 ML Vial ONE (11:32)
[2020-12-26] MEDS ORDERED: PROPOFOL 200 MG/20 ML VIAL ONE (11:32)
[2020-12-26] MEDS ORDERED: Ropivacaine 0.5% HCl/PF (150 MG/30 ML VIAL) ONE (11:32)
[2020-12-26] MEDS ORDERED: Fluticasone Propionate Nasal Spray 16 gm Bottle NASAL PRN (11:43)
[2020-12-26] MEDS ORDERED: Phenylephrine 10 MG/ML VIAL ONE (11:51)
[2020-12-26] MEDS ORDERED: Ketorolac Tromethamine 30 MG/ML VIAL IVP SCH (12:00)
[2020-12-26] MEDS ORDERED: SUGAMMADEX SODIUM 500 MG/5 ML VIAL ONE (12:58)
[2020-12-26] MEDS: Ipratropium Bromide 2.5 ml Neb NEB SCH ×2 (19:37→19:38)
[2020-12-26] MEDS: Ketorolac Tromethamine 30 MG/ML VIAL IVP SCH ×2 (19:42→19:48)
[2020-12-26] MEDS: Amitriptyline HCl 25 MG TAB PO SCH (19:49)
[2020-12-26] MEDS: Atorvastatin Calcium 40 MG TAB PO SCH (19:49)
[2020-12-26 19:53] VITALS: BMI 30.2
[2020-12-26] MEDS ORDERED: Vancomycin 1 GM in Premix Bag 1 BAG IVPB SCH (22:00)
[2020-12-27] MEDS: Ipratropium Bromide 2.5 ml Neb NEB SCH ×4 (00:39→18:09)
[2020-12-27] MEDS: Ketorolac Tromethamine 30 MG/ML VIAL IVP SCH ×4 (01:12→17:21)
[2020-12-27] MEDS: HYDROcodone/Acetaminophen 5/325 mg Tablet PO PRN ×4 (05:19→18:54)
[2020-12-27] MEDS: Zinc Sulfate 220 MG CAP PO SCH (08:18)
[2020-12-27] MEDS: Amlodipine 5 MG TAB PO SCH (08:18)
[2020-12-27] MEDS: Amitriptyline HCl 25 MG TAB PO SCH (20:35)
[2020-12-27] MEDS: Atorvastatin Calcium 40 MG TAB PO SCH (20:35)
[2020-12-28] MEDS: Ipratropium Bromide 2.5 ml Neb NEB SCH ×2 (00:23→09:39)
[2020-12-28] MEDS: Ketorolac Tromethamine 30 MG/ML VIAL IVP SCH ×2 (00:37→05:20)
[2020-12-28] MEDS: HYDROcodone/Acetaminophen 5/325 mg Tablet PO PRN ×3 (00:39→08:57)
[2020-12-28 08:08] VITALS: BP 152/94; TEMP 98.9
[2020-12-28] MEDS: Amlodipine 5 MG TAB PO SCH (08:57)
[2020-12-28] MEDS: Zinc Sulfate 220 MG CAP PO SCH (08:57)
== END 2020-12-28 11:55 | disposition home or self-care (01) | DRG 483 ==
LOC: SURG A 12-26 08:41 → EDSTATUS 12-26 14:15 → SURG B 12-26 17:27
PROVIDERS: ADMIT Orthopaedic Surgery; ATTEND Orthopaedic Surgery
PROC: 0RRK00Z Replacement of Left Shoulder Joint with Reverse Ball and Socket Synthetic Substitute, Open Approach (ICD-10-PCS; principal; 2020-12-27)
DX: M19.012 Primary osteoarthritis, left shoulder (principal); I10 Essential (primary) hypertension; E78.2 Mixed hyperlipidemia; Z90.710 Acquired absence of both cervix and uterus; Z90.79 Acquired absence of other genital organ(s); Z90.722 Acquired absence of ovaries, bilateral; Z80.9 Family history of malignant neoplasm, unspecified; Z83.3 Family history of diabetes mellitus; Z82.49 Family history of ischemic heart disease and other diseases of the circulatory system; Z87.891 Personal history of nicotine dependence; Z88.0 Allergy status to penicillin; Z87.442 Personal history of urinary calculi; M75.102 Unspecified rotator cuff tear or rupture of left shoulder, not specified as traumatic; J44.9 Chronic obstructive pulmonary disease, unspecified
CPT/HCPCS: A4306; C1713; J1885; J1956; J2001; J2250; J2370; J2405; J2704; J2795; J3010; J3370; J3490

== ENCOUNTER 2021-03-31 10:38 | Inpatient (IN) | payer MEDICARE ==
[2021-03-31 11:07] LABS: #Lymphocytes 2.1 thou/uL (1.20-3.40); #Monocytes 0.7 thou/uL (0.11-0.59); #Neutrophils 14.8 thou/uL (1.40-6.50); %Basophils 0.1 % (0.0-1.0); %Eosinophils 0.2 % (0.0-10.0); %Lymphocytes 11.7 % (21.0-51.0); Hemoglobin 10.8 g/dL (12.0-16.0); Mean Corpuscular HGB CONC 33.6 g/dL (32.0-36.0); Mean Corpuscular Hemoglobin 32.7 pg (27.0-31.0); Mean Corpuscular Volume 97.5 fL (78.0-98.0); Mean Platelet Volume 6.6 fL (7.4-10.4); Platelet Count 545 thou/uL (130-400); RBC Distribution Width 13.9 % (11.5-14.5); White Blood Cell (WBC) Count 17.7 thou/uL (4.8-10.8)
[2021-03-31 11:29] LABS: ALT (SGPT) 17 U/L (8-55); AST (SGOT) 14 U/L (5-34); Albumin 3.6 g/dL (3.4-4.8); Alkaline Phosphatase 106 U/L (40-110); Anion Gap 14 mmol/L (10-20); BUN (Urea Nitrogen) 41 mg/dL (9.8-20.1); Bilirubin, Total 0.4 mg/dL (0.2-1.2); Calc. Creatinine Clearance 0 mL/min (70-130); Carbon Dioxide 25 mmol/L (23-31); Chloride 105 mmol/L (98-107); Globulin 2.9 g/dL (2.4-3.5); Glucose 127 mg/dL (80-115); Potassium 4.5 mmol/L (3.5-5.1); Protein, Total 6.5 g/dL (5.8-8.1); Sodium 139 mmol/L (136-145)
[2021-03-31] MEDS ORDERED: Ondansetron PF 4 MG/2 ML Vial ONE (11:39)
[2021-03-31] MEDS ORDERED: Pantoprazole 40 MG VIAL ONE (11:39)
[2021-03-31 13:01] LABS: Bacteria/HPF None Seen HPF (None Seen); Bilirubin Negative (Negative); Blood, Urine Negative (Negative); Clarity Clear (Clear); Glucose, Urine (Dipstick) Normal (Negative); Ketone, Urine Trace mg/dL (Negative); Leukocyte 75 Leu/uL (Negative); Nitrite Negative (Negative); Protein, Urine (Dipstick) Negative (Neg-Trace); RBC/HPF 0-3 HPF (0-3); Specific Gravity, Urine 1.022 (1.002-1.036); Squamous Epithelial 0-3 HPF (0-3); Urobilinogen Normal mg/dL (Less than 2); WBC/HPF 0-3 HPF (0-3)
[2021-03-31] MEDS ORDERED: Acetaminophen 325 MG TAB PO PRN (13:06)
[2021-03-31] MEDS ORDERED: Acetaminophen 650 MG Suppository PR PRN (13:06)
[2021-03-31] MEDS ORDERED: Ondansetron PF 4 MG/2 ML Vial IVP PRN (13:06)
[2021-03-31] MEDS ORDERED: Bisacodyl 5 MG TAB PO PRN (13:06)
[2021-03-31 13:43] LABS: Hemoglobin 9.8 g/dL (12.0-16.0)
[2021-03-31 14:02] LABS: Lactic Acid 1.2 mmol/L (0.5-2.2)
[2021-03-31 14:10] LABS: Troponin I Less than 0.010 ng/mL (< 0.028)
[2021-03-31 15:39] LABS: SARS-CoV-2 NAA Rapid Test Not Detected (NotDetected)
[2021-03-31 16:08] VITALS: BMI 28.2
[2021-03-31 17:56] LABS: Troponin I Less than 0.010 ng/mL (< 0.028)
[2021-03-31] MEDS: Sodium Chloride 0.9% 1,000 ML IV SCH (18:27)
[2021-03-31] MEDS: Mometasone 100 MCG/PUFF (1 INHALER) INH SCH (19:39)
[2021-03-31] MEDS: Atorvastatin Calcium 40 MG TAB PO SCH (20:32)
[2021-03-31 21:27] LABS: Hemoglobin 9.6 g/dL (12.0-16.0)
[2021-04-01 04:42] LABS: #Eosinphils 0.1 thou/uL (0.0-0.7); #Lymphocytes 2.6 thou/uL (1.20-3.40); #Monocytes 0.7 thou/uL (0.11-0.59); #Neutrophils 4.4 thou/uL (1.40-6.50); %Basophils 0.4 % (0.0-1.0); %Eosinophils 0.8 % (0.0-10.0); %Lymphocytes 33.3 % (21.0-51.0); %Monocytes 8.5 % (0.0-10.0); Hemoglobin 8.7 g/dL (12.0-16.0); Mean Corpuscular Hemoglobin 33.2 pg (27.0-31.0); Mean Corpuscular Volume 97.6 fL (78.0-98.0); Mean Platelet Volume 6.5 fL (7.4-10.4); Platelet Count 364 thou/uL (130-400); RBC Distribution Width 14.1 % (11.5-14.5); Red Blood Cell (RBC) Count 2.64 mill/uL (4.20-5.40); White Blood Cell (WBC) Count 7.7 thou/uL (4.8-10.8)
[2021-04-01 04:54] LABS: Anion Gap 10 mmol/L (10-20); BUN (Urea Nitrogen) 22 mg/dL (9.8-20.1); Calc. Creatinine Clearance 96 mL/min (70-130); Calcium 8.4 mg/dL (7.8-10.44); Carbon Dioxide 23 mmol/L (23-31); Chloride 111 mmol/L (98-107); Glucose 83 mg/dL (80-115); Potassium 3.5 mmol/L (3.5-5.1); Sodium 140 mmol/L (136-145)
[2021-04-01] MEDS: Sodium Chloride 0.9% 1,000 ML IV SCH ×2 (06:10→20:29)
[2021-04-01] MEDS: Mometasone 100 MCG/PUFF (1 INHALER) INH SCH ×2 (06:47→18:45)
[2021-04-01] MEDS ORDERED: Non-Formulary Item 1 EACH (Fluticasone/Umeclidin/Vilanter [Trelegy Ellipta 200-62.5-25] 1 INH SCH (09:00)
[2021-04-01] MEDS: Amlodipine 5 MG TAB PO SCH (09:41)
[2021-04-01] MEDS ORDERED: PROPOFOL 200 MG/20 ML VIAL ONE (12:12)
[2021-04-01] MEDS ORDERED: Lidocaine 1% PF 5 ML VIAL ONE (12:12)
[2021-04-01] MEDS: Pantoprazole 40 MG VIAL IVP SCH (20:36)
[2021-04-01] MEDS: Atorvastatin Calcium 40 MG TAB PO SCH (20:36)
[2021-04-02 05:02] LABS: Hemoglobin 7.2 g/dL (12.0-16.0)
[2021-04-02] MEDS: Mometasone 100 MCG/PUFF (1 INHALER) INH SCH (07:05)
[2021-04-02] MEDS ORDERED: Cyclobenzaprine 10 MG TAB PO SCH (09:00)
[2021-04-02] MEDS ORDERED: traMADol HCl 50 MG TAB PO PRN (09:50)
[2021-04-02] MEDS ORDERED: traMADol HCl 50 MG TAB PO SCH (10:00)
[2021-04-02 10:08] LABS: Hemoglobin 8.2 g/dL (12.0-16.0)
[2021-04-02] MEDS: Amlodipine 5 MG TAB PO SCH (10:08)
[2021-04-02] MEDS: Pantoprazole 40 MG VIAL IVP SCH (10:08)
[2021-04-02] MEDS: Sodium Chloride 0.9% 1,000 ML IV SCH (10:40)
[2021-04-02 11:18] VITALS: BP 130/82; TEMP 98
== END 2021-04-02 14:02 | disposition home or self-care (01) | DRG 381 ==
LOC: ERS 10:38 → ERHOLD 12:35 → 2NO 15:43 → OBSVTOIN 04-01 18:53 → INTOOBSV 04-01 18:55 → OBSVTOIN 04-01 18:55
PROVIDERS: ADMIT Internal Medicine; ATTEND Family Medicine
PROC: 0W3P8ZZ Control Bleeding in Gastrointestinal Tract, Via Natural or Artificial Opening Endoscopic (ICD-10-PCS; principal; 2021-04-01)
DX: K22.11 Ulcer of esophagus with bleeding (principal); D62 Acute posthemorrhagic anemia; J44.9 Chronic obstructive pulmonary disease, unspecified; E78.5 Hyperlipidemia, unspecified; I10 Essential (primary) hypertension; K22.2 Esophageal obstruction; M19.90 Unspecified osteoarthritis, unspecified site; K44.9 Diaphragmatic hernia without obstruction or gangrene; K21.00 Gastro-esophageal reflux disease with esophagitis, without bleeding; S20.219A Contusion of unspecified front wall of thorax, initial encounter; X58.XXXA Exposure to other specified factors, initial encounter; Z96.612 Presence of left artificial shoulder joint; Z86.711 Personal history of pulmonary embolism; Z88.0 Allergy status to penicillin; Z79.01 Long term (current) use of anticoagulants; Z79.899 Other long term (current) drug therapy; Z99.81 Dependence on supplemental oxygen; Z90.710 Acquired absence of both cervix and uterus; Z98.890 Other specified postprocedural states
CPT/HCPCS: 36415; 70450; 71045; 80048; 80053; 81003; 81015; 82274; 83605; 84484; 85014; 85018; 85025; 86850; 86900; 86901; 93005; 94640; 96374; 96375; C9113; G0378; J2405; J2704; J7050; J7620; U0002; U0005

== ENCOUNTER 2021-06-25 11:37 | Outpatient (CLI) | payer MEDICARE ==
[2021-06-25 17:39] LABS: SARS-CoV-2 PCR by NAA Not Detected (NotDetected)
== END 2021-06-25 11:38 | disposition home or self-care (01) ==
LOC: LABBT 11:37
PROVIDERS: ATTEND Internal Medicine Gastroenterology
DX: Z01.812 Encounter for preprocedural laboratory examination (principal); K92.2 Gastrointestinal hemorrhage, unspecified; K22.2 Esophageal obstruction; Z20.822 Contact with and (suspected) exposure to COVID-19
CPT/HCPCS: U0003; U0005

== ENCOUNTER 2021-06-28 07:20 | Day surgery (SDC) | payer MEDICARE ==
[2021-06-27 10:38] VITALS: BMI 25.7
== END 2021-06-28 11:12 | disposition home or self-care (01) ==
LOC: SDC 07:20
PROVIDERS: ATTEND Internal Medicine Gastroenterology
PROC: 0D748ZZ Dilation of Esophagogastric Junction, Via Natural or Artificial Opening Endoscopic (ICD-10-PCS; principal; 2021-06-28)
DX: K22.2 Esophageal obstruction (principal); K44.9 Diaphragmatic hernia without obstruction or gangrene; M19.90 Unspecified osteoarthritis, unspecified site; J44.9 Chronic obstructive pulmonary disease, unspecified; E78.00 Pure hypercholesterolemia, unspecified; I10 Essential (primary) hypertension; Z86.711 Personal history of pulmonary embolism; Z87.891 Personal history of nicotine dependence; Z79.01 Long term (current) use of anticoagulants; Z79.899 Other long term (current) drug therapy; Z88.0 Allergy status to penicillin; Z99.81 Dependence on supplemental oxygen

== ENCOUNTER 2021-09-07 14:00 | Outpatient (CLI) | payer MEDICARE | END 2021-09-07 14:01 | disposition home or self-care (01) | LOC: BICULT 14:00 | PROVIDERS: ATTEND Family Medicine | DX: R31.21 Asymptomatic microscopic hematuria (principal) | CPT/HCPCS: 76770 ==

== ENCOUNTER 2021-10-03 13:15 | Outpatient (CLI) | payer MEDICARE ==
[2021-10-04 11:59] LABS: SARS-CoV-2 PCR by NAA Not Detected (NotDetected)
== END 2021-10-03 13:16 | disposition home or self-care (01) ==
LOC: LABBT 13:15
PROVIDERS: ATTEND Internal Medicine Gastroenterology
DX: Z01.812 Encounter for preprocedural laboratory examination (principal); K22.2 Esophageal obstruction; R06.01 Orthopnea; J44.9 Chronic obstructive pulmonary disease, unspecified; Z20.822 Contact with and (suspected) exposure to COVID-19
CPT/HCPCS: U0003; U0005

== ENCOUNTER 2021-10-08 06:55 | Day surgery (SDC) | payer MEDICARE ==
[2021-09-10 13:33] VITALS: BMI 25.9
[2021-10-08] MEDS ORDERED: Morphine 4 MG/ML VIAL ONE (08:56)
[2021-10-08] MEDS ORDERED: PROPOFOL 200 MG/20 ML VIAL ONE (09:15)
== END 2021-10-08 10:43 | disposition home or self-care (01) ==
LOC: SDC 06:55
PROVIDERS: ATTEND Internal Medicine Gastroenterology
PROC: 0D738ZZ Dilation of Lower Esophagus, Via Natural or Artificial Opening Endoscopic (ICD-10-PCS; principal; 2021-10-08)
DX: K22.2 Esophageal obstruction (principal); K44.9 Diaphragmatic hernia without obstruction or gangrene; J44.9 Chronic obstructive pulmonary disease, unspecified; Z79.899 Other long term (current) drug therapy; Z88.0 Allergy status to penicillin
CPT/HCPCS: J2270; J2704

== ENCOUNTER 2022-07-18 11:25 | Outpatient (CLI) | payer MEDICARE | END 2022-07-18 11:26 | disposition home or self-care (01) | LOC: RAD 11:25 | PROVIDERS: ATTEND Internal Medicine Critical Care Medicine | DX: R06.00 Dyspnea, unspecified (principal); J44.9 Chronic obstructive pulmonary disease, unspecified | CPT/HCPCS: 71046 ==

== ENCOUNTER 2022-09-09 06:50 | Day surgery (SDC) | payer MEDICARE ==
[2022-09-06 15:04] VITALS: BMI 28.5
[2022-09-09] MEDS ORDERED: Lidocaine 1% PF 5 ML VIAL ONE (09:00)
[2022-09-09] MEDS ORDERED: PROPOFOL 200 MG/20 ML VIAL ONE (09:00)
== END 2022-09-09 10:06 | disposition home or self-care (01) ==
LOC: SDC 06:50
PROVIDERS: ATTEND Internal Medicine Gastroenterology
PROC: 0D748ZZ Dilation of Esophagogastric Junction, Via Natural or Artificial Opening Endoscopic (ICD-10-PCS; principal; 2022-09-09)
PROC: 0DB48ZX Excision of Esophagogastric Junction, Via Natural or Artificial Opening Endoscopic, Diagnostic (ICD-10-PCS; 2022-09-09)
DX: K22.2 Esophageal obstruction (principal); K22.10 Ulcer of esophagus without bleeding; K21.00 Gastro-esophageal reflux disease with esophagitis, without bleeding; K44.9 Diaphragmatic hernia without obstruction or gangrene; I10 Essential (primary) hypertension; M19.90 Unspecified osteoarthritis, unspecified site; J44.9 Chronic obstructive pulmonary disease, unspecified; E78.00 Pure hypercholesterolemia, unspecified; Z86.711 Personal history of pulmonary embolism; Z87.891 Personal history of nicotine dependence; Z79.899 Other long term (current) drug therapy; Z88.0 Allergy status to penicillin
CPT/HCPCS: 88305; J2704

== ENCOUNTER 2023-08-21 00:07 | Emergency (ER) | payer MEDICARE ==
[2023-08-21 00:51] LABS: #Basophils 0.1 thou/uL (0.0-0.2); #Monocytes 1.1 thou/uL (0.11-0.59); #Neutrophils 19.3 thou/uL (1.40-6.50); %Basophils 0.2 % (0.0-1.0); %Eosinophils 0.2 % (0.0-10.0); %Lymphocytes 8.5 % (21.0-51.0); %Monocytes 4.7 % (0.0-10.0); %Neutrophils 85.8 % (42.0-75.0); Hematocrit 47.9 % (36.0-47.0); Mean Corpuscular HGB CONC 33.4 g/dL (32.0-36.0); Mean Corpuscular Hemoglobin 32.3 pg (27.0-31.0); Mean Corpuscular Volume 96.6 fl (78.0-98.0); Mean Platelet Volume 9.1 fL (7.4-10.4); Platelet Count 413 10x3/uL (130-400); RBC Distribution Width 13.4 % (11.5-14.5); Red Blood Cell (RBC) Count 4.96 mill/uL (4.20-5.40); White Blood Cell (WBC) Count 22.5 10x3/uL (4.8-10.8)
[2023-08-21 01:16] LABS: ALT (SGPT) 11 U/L (8-55); AST (SGOT) 14 U/L (5-34); Albumin 3.9 g/dL (3.4-4.8); Alkaline Phosphatase 89 U/L (40-110); Anion Gap 15 mmol/L (10-20); BUN (Urea Nitrogen) 15 mg/dL (9.8-20.1); Bilirubin, Total 0.4 mg/dL (0.2-1.2); Calc. Creatinine Clearance 0 mL/min (70-130); Calcium 9.9 mg/dL (7.8-10.44); Carbon Dioxide 29 mmol/L (23-31); Chloride 100 mmol/L (98-107); Estimated GFR 63; Glucose 161 mg/dL (80-115); Lipase 12 U/L (8-78); Magnesium 2.1 mg/dL (1.6-2.6); Potassium 4.2 mmol/L (3.5-5.1); Protein, Total 6.9 g/dL (5.8-8.1); Sodium 140 mmol/L (136-145)
[2023-08-21 01:35] LABS: Troponin I Less than 0.010 ng/mL (< 0.028)
[2023-08-21 02:04] LABS: SARS-CoV-2 NAA Rapid Test Not Detected (NotDetected)
[2023-08-21] MEDS ORDERED: Ondansetron ODT 4 MG TAB ONE (02:54)
[2023-08-21] MEDS ORDERED: Dicyclomine 20 MG TAB ONE (02:54)
[2023-08-21 03:54] LABS: Bacteria/HPF None Seen HPF (None Seen); Bilirubin Negative (Negative); Blood, Urine Negative (Negative); CAUTI Indications for Culture Pelvic or flank pain; Clarity Turbid (Clear); Glucose, Urine (Dipstick) Normal (Negative); Ketone, Urine Negative (Negative); Leukocyte Negative Leu/uL (Negative); Nitrite Negative (Negative); Protein, Urine (Dipstick) Negative (Neg-Trace); Squamous Epithelial 0-3 HPF (0-3); Urobilinogen Normal mg/dL (Less than 2); Yeast-Budding 3+ HPF (None Seen)
[2023-08-21 04:06] LABS: Specific Gravity, Urine 1.055 (1.002-1.036)
[2023-08-21 04:08] LABS: Urine Culture Reflex No No
[2023-08-21] MEDS ORDERED: Iopamidol-370 76% 500 ML MDV (1 ML CHARGE) ONE (11:51)
== END 2023-08-21 04:35 | disposition home or self-care (01) ==
LOC: ERS 00:07
DX: K52.9 Noninfective gastroenteritis and colitis, unspecified (principal); R10.31 Right lower quadrant pain; R11.2 Nausea with vomiting, unspecified; J43.9 Emphysema, unspecified; I10 Essential (primary) hypertension; Z87.891 Personal history of nicotine dependence
CPT/HCPCS: 0240U; 74177; 80053; 81001; 83690; 83735; 84484; 85025; 93005; Q0162; Q9967

== ENCOUNTER 2023-10-17 11:48 | Outpatient (CLI) | payer MEDICARE | END 2023-10-17 11:49 | disposition home or self-care (01) | LOC: BICMAMMO 11:48 | PROVIDERS: ATTEND Family Medicine | DX: Z12.31 Encounter for screening mammogram for malignant neoplasm of breast (principal); N63.20 Unspecified lump in the left breast, unspecified quadrant | CPT/HCPCS: 77063; 77067 ==

== ENCOUNTER 2023-10-23 14:06 | Outpatient (CLI) | payer MEDICARE | END 2023-10-23 14:07 | disposition home or self-care (01) | LOC: BICMAMMO 14:06 | PROVIDERS: ATTEND Family Medicine | DX: N63.20 Unspecified lump in the left breast, unspecified quadrant (principal) | CPT/HCPCS: 76642; 77065; G0279 ==

== ENCOUNTER 2024-01-23 08:46 | Outpatient (CLI) | payer MEDICARE | END 2024-01-23 08:47 | disposition home or self-care (01) | LOC: RAD 08:46 | PROVIDERS: ATTEND Internal Medicine Critical Care Medicine | DX: R06.00 Dyspnea, unspecified (principal) | CPT/HCPCS: 71046 ==